=== PATIENT | female | born 1985 | race American Indian/Alaskan Native ===

== ENCOUNTER 2018-03-28 12:43 | Emergency (ER) | payer MEDICAID, OTHER ==
[2018-03-28 13:11] VITALS: BP 154/97
[2018-03-28 13:48] LABS: Bilirubin,Urine NEG (Negative); Blood,Urine NEG (Negative); Color,Urine Yellow (Yellow); Mucus,Urine FEW /HPF; Protein,Urine <15 mg/dL mg/dL (Negative); RBC,Urine < 1.0 /HPF (0.0-6.0); Urobilinogen,Urine < 2.0 mg/dL (<2.0)
[2018-03-28 13:53] LABS: HCG Qualitative,Urine Negative (Negative)
[2018-03-28] MEDS ORDERED: DECADRON IM ONE (15:06)
[2018-03-28] MEDS ORDERED: ATROVENT IH ONE (15:06)
[2018-03-28] MEDS ORDERED: PROVENTIL IH ONE (15:06)
--- NOTE | 2018-03-28 15:12 | Emergency Department Report ---
ED Shortness of Breath HPI - General Chief Complaint: Adult Asthma Stated Complaint: ASTHMA ATTACK/TI Time Seen by Provider: 03/28/18 14:59 Source: patient Mode of arrival: Ambulatory Limitations: No Limitations - History of Present Illness Initial Comments: This is a 32-year-old female nontoxic, well nourished in appearance, no acute signs of distress presents to the ED with c/o of right sided chest pain, cough, shortness of breathe and wheezing x2 days. Patient stated has been out of her inhaler medication. Patient stated she was just diagnosed with Bronchitis last month. Patient denies any radiation of pain. Patient stated chest pain is wo rsed when coughing and palpation. Patient describes pain as aching. Patient denies any hemoptysis, fever, chills, nausea, vomiting, headache, stiff neck, numbness, tingling, abdominal pain. Patient denies pleuritic chest pain. Patient denies any recent travels or long car rides. Patient denies any recent surgeries or any sick contacts. Patient stated allergies to Ibuprofen with PMH of asthma and HTN. MD Complaint: shortness of breath, cough, chest pain, "asthma attack" -: days(s) (2) Severity: mild Quality: aching Consistency: intermittent Improves With: rest, upright position Worsens With: lying flat, coughing Known History Of: asthma Context: recent URI Associated Symptoms: chest pain, cough Treatments Prior to Arrival: none - Related Data Previous Rx's Medication Instructions Recorded Last Taken Type metroNIDAZOLE [Metrogel] 60 gm TP QDAY #1 gel..gram. 06/13/15 Unknown Rx ALBUTEROL Inhaler (OR & NICU) 2 puff IH Q6H PRN #1 inhalation 02/11/18 Unknown Rx [ProAir HFA Inhaler] Amoxicillin/K Clav Tab [Augmentin 1 tab PO Q12HR #20 tab 02/11/18 Unknown Rx 875MG TAB] Cetirizine HCl [ZyrTEC] 10 mg PO QAM 14 Days #14 capsule 02/11/18 Unknown Rx Fluconazole [Diflucan TAB] 100 mg PO QDAY 2 Days #2 tablet 02/11/18 Unknown Rx Fluticasone [Flonase] 1 spray NS QDAY 14 Days #1 bottle 02/11/18 Unknown Rx guaiFENesin/CODEINE [Robitussin AC] 10 ml PO QHS PRN #70 oral.liqd 02/11/18 Unknown Rx predniSONE [Deltasone] 50 mg PO QDAY 3 Days #3 tab 02/11/18 Unknown Rx ALBUTEROL Inhaler(NF) [VENTOLIN 1 puff IH Q4-6H PRN #1 inha 03/28/18 Unknown Rx Inhaler(NF)] Furosemide [Lasix TAB] 40 mg PO QDAY #30 tablet 03/28/18 Unknown Rx Prednisone [predniSONE 10 mg 10 mg PO .TAPER #1 tab.ds.pk 03/28/18 Unknown Rx (6-Day Pack, 21 Tabs)] levoFLOXacin [Levaquin TAB] 750 mg PO QDAY #7 tablet 03/28/18 Unknown Rx Allergies Allergy/AdvReac Type Severity Reaction Status Date / Time ibuprofen [From Motrin] Allergy Hives Verified 02/11/18 07:27 ED Review of Systems ROS: Stated complaint: ASTHMA ATTACK/TI Other details as noted in HPI Constitutional: denies: chills, fever Eyes: denies: eye pain, eye discharge, vision change ENT: denies: ear pain, throat pain Respiratory: cough, shortness of breath, wheezing Cardiovascular: chest pain. denies: palpitations Endocrine: no symptoms reported Gastrointestinal: denies: abdominal pain, nausea, diarrhea Genitourinary: denies: urgency, dysuria, discharge Musculoskeletal: denies: back pain, joint swelling, arthralgia Skin: denies: rash, lesions Neurological: denies: headache, weakness, paresthesias Psychiatric: denies: anxiety, depression Hematological/Lymphatic: denies: easy bleeding, easy bruising ED Past Medical Hx - Past Medical History Previous Medical History?: Yes Hx Hypertension: Yes Hx Asthma: Yes Additional medical history: Anemia - Surgical History Additional Surgical History: right shoulder surgery. neck surgery - Social History Smoking Status: Current Every Day Smoker Substance Use Type: Prescribed - Medications Home Medications: Home Medications Medication Instructions Recorded Confirmed Last Taken Type metroNIDAZOLE [Metrogel] 60 gm TP QDAY #1 gel..gram. 06/13/15 Unknown Rx ALBUTEROL Inhaler (OR & NICU) 2 puff IH Q6H PRN #1 inhalation 02/11/18 Unknown Rx [ProAir HFA Inhaler] Amoxicillin/K Clav Tab [Augmentin 1 tab PO Q12HR #20 tab 02/11/18 Unknown Rx 875MG TAB] Cetirizine HCl [ZyrTEC] 10 mg PO QAM 14 Days #14 capsule 02/11/18 Unknown Rx Fluconazole [Diflucan TAB] 100 mg PO QDAY 2 Days #2 tablet 02/11/18 Unknown Rx Fluticasone [Flonase] 1 spray NS QDAY 14 Days #1 bottle 02/11/18 Unknown Rx guaiFENesin/CODEINE [Robitussin AC] 10 ml PO QHS PRN #70 oral.liqd 02/11/18 Unknown Rx predniSONE [Deltasone] 50 mg PO QDAY 3 Days #3 tab 02/11/18 Unknown Rx ALBUTEROL Inhaler(NF) [VENTOLIN 1 puff IH Q4-6H PRN #1 inha 03/28/18 Unknown Rx Inhaler(NF)] Furosemide [Lasix TAB] 40 mg PO QDAY #30 tablet 03/28/18 Unknown Rx Prednisone [predniSONE 10 mg 10 mg PO .TAPER #1 tab.ds.pk 03/28/18 Unknown Rx (6-Day Pack, 21 Tabs)] levoFLOXacin [Levaquin TAB] 750 mg PO QDAY #7 tablet 03/28/18 Unknown Rx ED Physical Exam - General Limitations: No Limitations General appearance: alert, in no apparent distress - Head Head exam: Present: atraumatic, normocephalic - Eye Eye exam: Present: normal appearance - ENT ENT exam: Present: normal exam, normal orophraynx - Neck Neck exam: Present: normal inspection, full ROM. Absent: tenderness, meningismus, lymphadenopathy - Respiratory Respiratory exam: Present: normal lung sounds bilaterally, wheezes (bilateral upper and lower lobes), chest wall tenderness (midsternum). Absent: respiratory distress, rales, rhonchi, stridor, accessory muscle use, decreased breath sounds, prolonged expiratory - Cardiovascular Cardiovascular Exam: Present: regular rate, normal rhythm, normal heart sounds. Absent: bradycardia, tachycardia, irregular rhythm, systolic murmur, diastolic murmur, rubs, gallop - Extremities Exam Extremities exam: Present: normal inspection, full ROM - Back Exam Back exam: Present: normal inspection, full ROM - Neurological Exam Neurological exam: Present: alert, oriented X3 - Psychiatric Psychiatric exam: Present: normal affect, normal mood - Skin Skin exam: Present: warm, dry, intact, normal color. Absent: rash ED Course Vital Signs 03/28/18 13:04 Temperature 98.8 F Pulse Rate 81 Respiratory 20 Rate Blood Pressure 154/97 O2 Sat by Pulse 95 Oximetry - Reevaluation(s) Reevaluation #1: 03/28/18 15:25 Patient is speaking in full sentences with no signs of distress noted. Reevaluation #2: 03/28/18 18:47 During discharge patient is requested for Lasix 40 mg by mouth to be refilled as she currently takes it daily. ED Medical Decision Making - Lab Data Result diagrams: 03/28/18 15:11 03/28/18 15:11 - Medical Decision Making This is a 7-year-old male that presents with asthma exacerbation and PNA. Patient is stable and was examined by me. ABIGAIL and HEART score 0 pints. Wells criteria for DVT/SVT/PE 0 points. D-dimmer was elevated. EKG normal sinus rhythm with no significant ST abnormalities. Non stemi and signed by MD. CTA and Chest x-ray has been obtained and dictated by the radiologist within normal limits. Patient is notified of the CTA/x-ray report with no questions noted by the patient. Patient did receive DuoNeb and steroids in the ED which patient the symptoms has resolved and subsided. Posttreatment and there is no wheezing upon auscultation. Patient is discharged with Levo, albuterol and prednisone. Patient was referred to Follow-up with a primary care doctor in 3-5 days or if symptoms worsen and continue return to emergency room as soon as possible. At time of discharge, the patient does not seem toxic or ill in appearance. No acute signs of distress noted. Patient agrees to discharge treatment plan of care. No further questions noted by the patient. This chart is dictated with using [employer] Dictation Program Critical care attestation.: If time is entered above; I have spent that time in minutes in the direct care of this critically ill patient, excluding procedure time. ED Disposition Clinical Impression: Costochondritis Asthma exacerbation Qualifiers: Asthma severity: mild Asthma persistence: intermittent Qualified Code(s): J45.21 - Mild intermittent asthma with (acute) exacerbation PNA (pneumonia) Qualifiers: Pneumonia type: due to unspecified organism Laterality: bilateral Lung location: unspecified part of lung Qualified Code(s): J18.9 - Pneumonia, unspecified organism Disposition: DC-01 TO HOME OR SELFCARE Is pt being admited?: No Does the pt Need Aspirin: No Condition: Stable Instructions: Asthma (ED), Bacterial Pneumonia (ED) Additional Instructions: Follow-up with a primary care doctor in 3-5 days or if symptoms worsen and continue return to emergency room as soon as possible. Prescriptions: ALBUTEROL Inhaler(NF) [VENTOLIN Inhaler(NF)] 1 puff IH Q4-6H PRN #1 inha PRN Reason: Wheezing Furosemide [Lasix TAB] 40 mg PO QDAY #30 tablet levoFLOXacin [Levaquin TAB] 750 mg PO QDAY #7 tablet Prednisone [predniSONE 10 mg (6-Day Pack, 21 Tabs)] 10 mg PO .TAPER #1 tab.ds.pk Referrals: PRIMARY CARE, [Primary Care Provider] - 3-5 Days KVNG QUINTANA MD [Staff Physician] - 3-5 Days [facility] [Outside] - 3-5 Days Forms: Work/School Release Form(ED)
[2018-03-28 15:18] LABS: Basophils % (Auto) 0.4 % (0.0-1.8); Eosinophils # (Auto) 0.1 K/mm3 (0.0-0.4); Eosinophils % (Auto) 1.2 % (0.0-4.3); Hemoglobin 9.9 gm/dl (10.1-14.3); Lymphocytes # (Auto) 2.5 K/mm3 (1.2-5.4); Lymphocytes % (Auto) 24.9 % (13.4-35.0); Mean Corpuscular HGB Conc 32 % (30-34); Mean Corpuscular Volume 75 fl (79-97); Platelet Count 417 K/mm3 (140-440); Red Blood Count 4.12 M/mm3 (3.65-5.03); Red Cell Distribution Width 15.8 % (13.2-15.2)
[2018-03-28 15:33] LABS: BUN/Creatinine Ratio 16; Blood Urea Nitrogen 13 mg/dL (7-17); Calcium 8.2 mg/dL (8.4-10.2)
--- NOTE | 2018-03-28 16:04 | XRay Report ---
FINAL REPORT EXAM: XR CHEST ROUTINE 2V HISTORY: sob/wheezing TECHNIQUE: PA and lateral views of the chest PRIORS: None. FINDINGS: Lines, tubes, and devices: N/A Lungs and pleura: Trachea is normal in position. Patchy early alveolar infiltrates are scattered bila terally. There is no evidence for pleural effusion, vascular congestion, or pneumothorax. Cardiomediastinal silhouette: Cardiac and mediastinal silhouettes are unremarkable. Other: Bony structures are intact. IMPRESSION: Patchy early bilateral alveolar infiltrates suggesting infection.
--- NOTE | 2018-03-28 18:10 | Cat Scan Report ---
FINAL REPORT EXAM: CT ANGIO CHEST HISTORY: SOB/chest pain with elevated D-dimer TECHNIQUE: Enhanced CT of the chest at 2.5 mm axial intervals following a pulmonary embolism protoco l. Coronal and sagittal imaging were also obtained. Coronal and sagittal MIP projections were obtaine d. Contrast: 100 ml of Omnipaque 350 given IV. PRIORS: CXR 03/28/2018 FINDINGS: There is no evidence for pulmonary embolism in the main pulmonary artery, right and left pulmonary ar teries or their major distributions. However, CT does not exclude distal pulmonary emboli. Patchy small scattered ground-glass infiltrates are present bilaterally, similar to the prior chest x -ray. Findings are most likely infectious or inflammatory in etiology. Otherwise, the lung parenchyma are expanded and clear with no evidence for parenchymal nodules, infil trates, congestion, or pleural effusion. There is no evidence for mediastinal, hilar, or axillary ad enopathy. Cardiovascular structures are within normal limits. Normal anatomic variant origin of the left verteb ral artery directly from the arch of the aorta is noted. No evidence for ventricular chamber enlargem ent is seen. Images through the lung bases include the upper abdomen which show no abnormalities of the visualized abdominal viscera. Bony structures demonstrate no focal abnormalities. IMPRESSION: No evidence for pulmonary embolism. Patchy ground-glass infiltrates bilaterally, likely infectious or inflammatory in etiology.
== END 2018-03-28 18:51 | disposition home or self-care (01) ==
LOC: ED 12:43
DX: M94.0 Chondrocostal junction syndrome [Tietze] (principal); J45.21 Mild intermittent asthma with (acute) exacerbation; J18.9 Pneumonia, unspecified organism; I10 Essential (primary) hypertension; F17.200 Nicotine dependence, unspecified, uncomplicated; Z86.2 Personal history of diseases of the blood and blood-forming organs and certain disorders involving the immune mechanism; Z79.899 Other long term (current) drug therapy; Z88.6 Allergy status to analgesic agent
CPT/HCPCS: 36415; 71046; 71275; 80048; 81001; 81025; 84484; 85025; 85379; 93005; 93010; 94640; 96372; 99285; J1100; Q9967

== ENCOUNTER 2018-04-14 06:23 | Emergency (ER) | payer MEDICAID ==
[2018-04-14 07:29] VITALS: BP 146/65
[2018-04-14] MEDS ORDERED: NACL 0.9% 1000 ML 1,000 ML IV ONE (07:32)
[2018-04-14] MEDS ORDERED: MORPHINE IV ONE (07:32)
[2018-04-14] MEDS ORDERED: ZOFRAN IV ONE (07:32)
--- NOTE | 2018-04-14 07:38 | Emergency Department Report ---
ED Abdominal Pain HPI - General Chief Complaint: Abdominal Pain Stated Complaint: BACK PAIN Time Seen by Provider: 04/14/18 07:13 Source: patient, EMS Mode of arrival: Wheelchair Limitations: No Limitations - History of Present Illness Initial Comments: Patient is 32 years old morbidly obese female with history of hypertension and asthma. Patient stated that she was recently discharged from [facility] for pneumonia. Patient presented to the emergency room via EMS complaining of left flank pain that started last night. Patient described her pain as sharp with no radiation. Patient stated that pain increases with movement and slightly improved with remaining still. Patient denied any fever, nausea or vomiting. No urinary symptoms. MD Complaint: flank pain -: Last night Location: L flank Radiation: none Migration to: no migration Severity: moderate Severity scale (0 -10): 7 Consistency: constant - Related Data Previous Rx's Medication Instructions Recorded Last Taken Type metroNIDAZOLE [Metrogel] 60 gm TP QDAY #1 gel..gram. 06/13/15 Unknown Rx ALBUTEROL Inhaler (OR & NICU) 2 puff IH Q6H PRN #1 inhalation 02/11/18 Unknown Rx [ProAir HFA Inhaler] Amoxicillin/K Clav Tab [Augmentin 1 tab PO Q12HR #20 tab 02/11/18 Unknown Rx 875MG TAB] Cetirizine HCl [ZyrTEC] 10 mg PO QAM 14 Days #14 capsule 02/11/18 Unknown Rx Fluconazole [Diflucan TAB] 100 mg PO QDAY 2 Days #2 tablet 02/11/18 Unknown Rx Fluticasone [Flonase] 1 spray NS QDAY 14 Days #1 bottle 02/11/18 Unknown Rx guaiFENesin/CODEINE [Robitussin AC] 10 ml PO QHS PRN #70 oral.liqd 02/11/18 Unknown Rx predniSONE [Deltasone] 50 mg PO QDAY 3 Days #3 tab 02/11/18 Unknown Rx ALBUTEROL Inhaler(NF) [VENTOLIN 1 puff IH Q4-6H PRN #1 inha 03/28/18 Unknown Rx Inhaler(NF)] Furosemide [Lasix TAB] 40 mg PO QDAY #30 tablet 03/28/18 Unknown Rx Prednisone [predniSONE 10 mg 10 mg PO .TAPER #1 tab.ds.pk 03/28/18 Unknown Rx (6-Day Pack, 21 Tabs)] levoFLOXacin [Levaquin TAB] 750 mg PO QDAY #7 tablet 03/28/18 Unknown Rx Allergies Allergy/AdvReac Type Severity Reaction Status Date / Time ibuprofen [From Motrin] Allergy Hives Verified 02/11/18 07:27 ED Review of Systems ROS: Stated complaint: BACK PAIN Other details as noted in HPI Comment: All other systems reviewed and negative Constitutional: denies: chills, fever Respiratory: denies: cough, orthopnea, shortness of breath, SOB with exertion, SOB at rest, wheezing Cardiovascular: denies: chest pain, palpitations Gastrointestinal: denies: abdominal pain, nausea, vomiting, diarrhea, constipation, hematemesis, melena Genitourinary: denies: urgency, dysuria Musculoskeletal: back pain Skin: denies: rash Neurological: denies: headache, weakness, numbness, paresthesias, confusion, abnormal gait ED Past Medical Hx - Past Medical History Previous Medical History?: Yes Hx Hypertension: Yes Hx Renal Disease: Yes Hx Asthma: Yes Additional medical history: Anemia, pneumonia - Surgical History Past Surgical History?: Yes Additional Surgical History: right shoulder surgery. neck surgery - Social History Smoking Status: Never Smoker Substance Use Type: None - Medications Home Medications: Home Medications Medication Instructions Recorded Confirmed Last Taken Type metroNIDAZOLE [Metrogel] 60 gm TP QDAY #1 gel..gram. 06/13/15 Unknown Rx ALBUTEROL Inhaler (OR & NICU) 2 puff IH Q6H PRN #1 inhalation 02/11/18 Unknown Rx [ProAir HFA Inhaler] Amoxicillin/K Clav Tab [Augmentin 1 tab PO Q12HR #20 tab 02/11/18 Unknown Rx 875MG TAB] Cetirizine HCl [ZyrTEC] 10 mg PO QAM 14 Days #14 capsule 02/11/18 Unknown Rx Fluconazole [Diflucan TAB] 100 mg PO QDAY 2 Days #2 tablet 02/11/18 Unknown Rx Fluticasone [Flonase] 1 spray NS QDAY 14 Days #1 bottle 02/11/18 Unknown Rx guaiFENesin/CODEINE [Robitussin AC] 10 ml PO QHS PRN #70 oral.liqd 02/11/18 Unknown Rx predniSONE [Deltasone] 50 mg PO QDAY 3 Days #3 tab 02/11/18 Unknown Rx ALBUTEROL Inhaler(NF) [VENTOLIN 1 puff IH Q4-6H PRN #1 inha 03/28/18 Unknown Rx Inhaler(NF)] Furosemide [Lasix TAB] 40 mg PO QDAY #30 tablet 03/28/18 Unknown Rx Prednisone [predniSONE 10 mg 10 mg PO .TAPER #1 tab.ds.pk 03/28/18 Unknown Rx (6-Day Pack, 21 Tabs)] levoFLOXacin [Levaquin TAB] 750 mg PO QDAY #7 tablet 03/28/18 Unknown Rx ED Physical Exam - General Limitations: No Limitations General appearance: alert, in distress (due to pain) - Head Head exam: Present: atraumatic, normocephalic, normal inspection - Eye Eye exam: Present: normal appearance - ENT ENT exam: Present: normal exam, normal orophraynx, mucous membranes moist - Neck Neck exam: Present: normal inspection, full ROM. Absent: tenderness, meningismus, lymphadenopathy, thyromegaly - Respiratory Respiratory exam: Present: normal lung sounds bilaterally. Absent: respiratory distress, wheezes, rales, rhonchi, stridor, chest wall tenderness, accessory muscle use, decreased breath sounds, prolonged expiratory - Cardiovascular Cardiovascular Exam: Present: regular rate, normal rhythm, normal heart sounds - GI/Abdominal GI/Abdominal exam: Present: soft, normal bowel sounds. Absent: distended, tenderness, guarding, rebound, rigid, organomegaly, mass, bruit, pulsatile mass, hernia - Extremities Exam Extremities exam: Present: normal inspection, full ROM, normal capillary refill. Absent: pedal edema, calf tenderness - Back Exam Back exam: Present: normal inspection, full ROM, CVA tenderness (L). Absent: tenderness, CVA tenderness (R), muscle spasm, paraspinal tenderness, vertebral tenderness, rash noted - Neurological Exam Neurological exam: Present: alert, oriented X3, CN II-XII intact, normal gait, reflexes normal - Psychiatric Psychiatric exam: Present: normal affect - Skin Skin exam: Present: warm, intact, normal color ED Course Vital Signs 04/14/18 04/14/18 04/14/18 07:25 08:00 09:55 Temperature 98.1 F Pulse Rate 72 Respiratory 21 18 20 Rate Blood Pressure 146/65 O2 Sat by Pulse 97 Oximetry ED Medical Decision Making - Lab Data Result diagrams: 04/14/18 07:41 04/14/18 07:41 - Radiology Data Radiology results: report reviewed Referring Physician: CECELIA OROPEZA Patient Name: FARHEEN HERNANDEZ Date of : 1985 Sex: Female Report Date: 2018-04-14 Report Status: Finalized Findings [facility] [address] [place] [address] XRay Report Signed Patient: FARHEEN HERNANDEZ MR#: [id number] : 1985 Acct:[id number] Age/Sex: 32 / F ADM Date: 04/14/18 Loc: ED Attending Dr: Ordering Physician: CECELIA OROPEZA Date of Service: 04/14/18 Procedure(s): XR chest 1V ap Accession Number(s): [id number] cc: CECELIA OROPEZA Fluoro Time In Minutes: AP CHEST: HISTORY: Cough AP view of the chest demonstrates a normal mediastinal and cardiac contour with clear lungs and normal bony and soft tissue structures. IMPRESSION: Unremarkable AP chest. Subtle patchy lung opacities have resolved since 03/28/18. Transcribed By: TTR Dictated By: WILLI CHAMBERS JR, MD Electronically Authenticated By: WILLI CHAMBERS JR, MD Signed Date/Time: 04/14/18901 DD/ 0 TD/TT: 04/14/18901 Referring Physician: CECELIA OROPEZA Patient Name: FARHEEN HERNANDEZ Date of : 1985 Sex: Female Report Date: 2018-04-14 Report Status: Finalized Findings [address] [address] Cat Scan Report Signed Patient: FARHEEN HERNANDEZ MR#: [id number] : 1985 Acct:[id number] Age/Sex: 32 / F ADM Date: 04/14/18 Loc: ED Attending Dr: Ordering Physician: CECELIA OROPEZA Date of Service: 04/14/18 Procedure(s): CT abdomen pelvis w con Accession Number(s): [id number] cc: CECELIA OROPEZA CT ABDOMEN PELVIS WITH CONTRAST: HISTORY: Abdominal pain, left flank pain. COMPARISON: No relevant comparison. TECHNIQUE: Helical CT in 1.25mm intervals following IV contrast. Sagittal and coronal reconstructions. FINDINGS: Lung bases: Adequately aerated. Normal heart size. Liver: Normal. Biliary system: Normal. Pancreas: Normal. Spleen: Normal. Kidneys/ureters/bladder: Normal. Adrenal glands: Normal. Aorta: Normal. Intestines: Normal. Appendix: Normal. Pelvic viscera: Normal. Ascites: None. Adenopathy: None. Musculoskeletal: Healing subacute lateral rib fractures are identified on the left side at levels 5 and 6 in the right side at levels 6, 7 and 8. A more acute non-displaced posterior left 11th rib fracture is also identified. IMPRESSION: Unremarkable CT scan of the abdomen and pelvis with contrast. Multiple rib fractures which appear to be of different ages as described. Transcribed By: TTR Dictated By: WILLI CHAMBERS JR, MD Electronically Authenticated By: WILLI CHAMBERS JR, MD Signed Date/Time: 04/14/181046 DD/ 1043 - Medical Decision Making Patient is 32 years old morbidly obese female with history of hypertension and asthma. Patient stated that she was recently discharged from [facility] for pneumonia. Patient presented to the emergency room via EMS complaining of left flank pain that started last night. Patient described her pain as sharp with no radiation. Patient stated that pain increases with movement and slightly improved with remaining still. Patient denied any fever, nausea or vomiting. No urinary symptoms. Patient last reviewed and is unremarkable. CT abdomen and pelvis showed a multiple left ribs fracture. Patient stated that she does not remember any recent injury. I advised patient to follow up with her primary care physician for further workup and to return to the ER if her symptoms have not improved. Critical care attestation.: If time is entered above; I have spent that time in minutes in the direct care of this critically ill patient, excluding procedure time. ED Disposition Clinical Impression: Left flank pain, Multiple rib fractures Disposition: TO HOME OR SELFCARE Is pt being admited?: No Condition: Stable Instructions: Abdominal Pain (ED), Rib Fracture (ED) Referrals: [facility] [Provider Group] - 3-5 Days
[2018-04-14 07:57] LABS: Basophils # (Auto) 0.1 K/mm3 (0.0-0.1); Basophils % (Auto) 1.4 % (0.0-1.8); Eosinophils # (Auto) 0.2 K/mm3 (0.0-0.4); Eosinophils % (Auto) 2.8 % (0.0-4.3); Hematocrit 34.1 % (30.3-42.9); Hemoglobin 10.8 gm/dl (10.1-14.3); Lymphocytes # (Auto) 2.6 K/mm3 (1.2-5.4); Lymphocytes % (Auto) 31.1 % (13.4-35.0); Mean Corpuscular HGB Conc 32 % (30-34); Mean Corpuscular Volume 75 fl (79-97); Monocytes # (Auto) 0.9 K/mm3 (0.0-0.8); Monocytes % (Auto) 10.6 % (0.0-7.3); Platelet Count 306 K/mm3 (140-440); Red Blood Count 4.58 M/mm3 (3.65-5.03); Red Cell Distribution Width 16.1 % (13.2-15.2)
[2018-04-14 08:16] LABS: Albumin 3.7 g/dL (3.9-5); BUN/Creatinine Ratio 12; Blood Urea Nitrogen 12 mg/dL (7-17); Calcium 8.9 mg/dL (8.4-10.2); Hemolysis Index 126
[2018-04-14 08:33] LABS: Bilirubin,Direct < 0.2 mg/dL (0-0.2)
[2018-04-14 08:34] LABS: Alanine Aminotransferase 12 units/L (7-56)
--- NOTE | 2018-04-14 09:05 | XRay Report ---
AP CHEST: HISTORY: Cough AP view of the chest demonstrates a normal mediastinal and cardiac contour with clear lungs and normal bony and soft tissue structures. IMPRESSION: Unremarkable AP chest. Subtle patchy lung opacities have resolved since 03/28/18.
[2018-04-14 09:24] LABS: Bacteria,Urine 2+ /HPF (Negative); Bilirubin,Urine NEG (Negative); Blood,Urine NEG (Negative); Color,Urine Yellow (Yellow); Mucus,Urine FEW /HPF; Protein,Urine <15 mg/dL mg/dL (Negative); RBC,Urine < 1.0 /HPF (0.0-6.0); Urobilinogen,Urine < 2.0 mg/dL (<2.0)
[2018-04-14] MEDS ORDERED: SUBLIMAZE IV ONE ×2 (09:41→11:00)
[2018-04-14] MEDS ORDERED: SUBLIMAZE ONE (09:46)
--- NOTE | 2018-04-14 10:50 | Cat Scan Report ---
CT ABDOMEN PELVIS WITH CONTRAST: HISTORY: Abdominal pain, left flank pain. COMPARISON: No relevant comparison. TECHNIQUE: Helical CT in 1.25mm intervals following IV contrast. Sagittal and coronal reconstructions. FINDINGS: Lung bases: Adequately aerated. Normal heart size. Liver: Normal. Biliary system: Normal. Pancreas: Normal. Spleen: Normal. Kidneys/ureters/bladder: Normal. Adrenal glands: Normal. Aorta: Normal. Intestines: Normal. Appendix: Normal. Pelvic viscera: Normal. Ascites: None. Adenopathy: None. Musculoskeletal: Healing subacute lateral rib fractures are identified on the left side at levels 5 and 6 in the right side at levels 6, 7 and 8. A more acute non-displaced posterior left 11th rib fracture is also identified. IMPRESSION: Unremarkable CT scan of the abdomen and pelvis with contrast. Multiple rib fractures which appear to be of different ages as described.
== END 2018-04-14 12:30 | disposition home or self-care (01) ==
LOC: ED 06:23
DX: S22.42XA Multiple fractures of ribs, left side, initial encounter for closed fracture (principal); I10 Essential (primary) hypertension; J45.909 Unspecified asthma, uncomplicated; Z88.6 Allergy status to analgesic agent; X58.XXXA Exposure to other specified factors, initial encounter; Y93.89 Activity, other specified; Y92.89 Other specified places as the place of occurrence of the external cause; Y99.8 Other external cause status
CPT/HCPCS: 36415; 71045; 74177; 80048; 80076; 81001; 83690; 84703; 85025; 96374; 96375; 99285; J2270; J2405; J3010; J7030; Q9967

== ENCOUNTER 2018-06-23 20:45 | Emergency (ER) | payer MEDICAID, OTHER ==
--- NOTE | 2018-06-23 21:15 | Emergency Department Report ---
Chief Complaint: Upper Respiratory Infection Stated Complaint: BAD COUGH Time Seen by Provider: 06/23/18 21:12 - HPI History of Present Illness: Pt presents with a cough that began three weeks ago (+) mucus production (+) rhinorrhea, congestion no fever no sick contacts hx of asthma, htn pt uses albuterol inhaler MSE screening note: Focused history and physical exam performed. Due to findings the following was ordered: CXR ED Disposition for MSE Condition: Stable
--- NOTE | 2018-06-23 23:08 | XRay Report ---
PROCEDURE: XR CHEST ROUTINE 2V HISTORY: cough FINDINGS: Frontal and lateral views the chest were acquired. The heart is normal in size. There is no consolidative pulmonary infiltrate. The pulmonary vasculature is within normal limits. IMPRESSION: No active disease in the chest This document is electronically signed by Faustino Guerrero MD., June 23 2018 11:06:20 PM ET
[2018-06-24] MEDS ORDERED: DUONEB *Not for PRN Use IH ONE (00:35)
[2018-06-24] MEDS ORDERED: DELTASONE PO STA (00:36)
[2018-06-24 00:53] VITALS: BP 103/85
--- NOTE | 2018-06-24 01:43 | Emergency Department Report ---
- General Chief Complaint: Upper Respiratory Infection Stated Complaint: BAD COUGH Time Seen by Provider: 06/23/18 21:12 Source: patient Mode of arrival: Ambulatory Limitations: No Limitations - History of Present Illness MD Complaint: cough, sore throat, rhinorrhea, nasal congestion -: week(s) (2) Severity: mild Consistency: constant Improves With: nothing Worsens With: nothing Associated Symptoms: rhinorrhea, nasal congestion, sore throat, cough, nausea. denies: fever, chills, myalgias, diaphoresis, chest pain, shortness of breath, abdominal pain, vomiting, diarrhea, dysuria, confusion, weight loss, epistaxis, hoarseness, ear pain Treatments Prior to Arrival: none - Related Data Previous Rx's Medication Instructions Recorded Last Taken Type metroNIDAZOLE [Metrogel] 60 gm TP QDAY #1 gel..gram. 06/13/15 Unknown Rx ALBUTEROL Inhaler (OR & NICU) 2 puff IH Q6H PRN #1 inhalation 02/11/18 Unknown Rx [ProAir HFA Inhaler] Amoxicillin/K Clav Tab [Augmentin 1 tab PO Q12HR #20 tab 02/11/18 Unknown Rx 875MG TAB] Cetirizine HCl [ZyrTEC] 10 mg PO QAM 14 Days #14 capsule 02/11/18 Unknown Rx Fluconazole [Diflucan TAB] 100 mg PO QDAY 2 Days #2 tablet 02/11/18 Unknown Rx Fluticasone [Flonase] 1 spray NS QDAY 14 Days #1 bottle 02/11/18 Unknown Rx guaiFENesin/CODEINE [Robitussin AC] 10 ml PO QHS PRN #70 oral.liqd 02/11/18 Unknown Rx predniSONE [Deltasone] 50 mg PO QDAY 3 Days #3 tab 02/11/18 Unknown Rx ALBUTEROL Inhaler(NF) [VENTOLIN 1 puff IH Q4-6H PRN #1 inha 03/28/18 Unknown Rx Inhaler(NF)] Furosemide [Lasix TAB] 40 mg PO QDAY #30 tablet 03/28/18 Unknown Rx Prednisone [predniSONE 10 mg 10 mg PO .TAPER #1 tab.ds.pk 03/28/18 Unknown Rx (6-Day Pack, 21 Tabs)] levoFLOXacin [Levaquin TAB] 750 mg PO QDAY #7 tablet 03/28/18 Unknown Rx HYDROcodone/APAP 5-325 [[place] 1 each PO Q6HR PRN #14 tablet 04/14/18 Unknown Rx 5/325] Ondansetron [Zofran Odt] 4 mg PO Q8HR PRN #14 tab.rapdis 04/14/18 Unknown Rx ALBUTEROL Inhaler (OR & NICU) 1 puff IH Q4-6H PRN #1 inha 06/24/18 Unknown Rx [ProAir HFA Inhaler] Azithromycin [Zithromax] 500 mg PO QDAY #5 tablet 06/24/18 Unknown Rx Benzonatate [Tessalon Perles] 100 mg PO Q8HR #30 capsule 06/24/18 Unknown Rx guaiFENesin/CODEINE [Robitussin AC] 5 ml PO Q6H PRN #120 ml 06/24/18 Unknown Rx Allergies Allergy/AdvReac Type Severity Reaction Status Date / Time ibuprofen [From Motrin] Allergy Hives Verified 02/11/18 07:27 ED Review of Systems ROS: Stated complaint: BAD COUGH Other details as noted in HPI Constitutional: denies: chills, fever Eyes: denies: eye pain, eye discharge, vision change ENT: congestion. denies: ear pain, throat pain Respiratory: cough. denies: shortness of breath, wheezing Cardiovascular: denies: chest pain, palpitations Endocrine: no symptoms reported Gastrointestinal: denies: abdominal pain, nausea, diarrhea Genitourinary: denies: urgency, dysuria, discharge Musculoskeletal: denies: back pain, joint swelling, arthralgia Skin: denies: rash, lesions Neurological: denies: headache, weakness, paresthesias Psychiatric: denies: anxiety, depression Hematological/Lymphatic: denies: easy bleeding, easy bruising ED Past Medical Hx - Past Medical History Previous Medical History?: Yes Hx Hypertension: Yes Hx Renal Disease: Yes Hx Asthma: Yes Additional medical history: Anemia, pneumonia - Surgical History Past Surgical History?: Yes Additional Surgical History: right shoulder surgery. neck surgery - Social History Smoking Status: Never Smoker Substance Use Type: None - Medications Home Medications: Home Medications Medication Instructions Recorded Confirmed Last Taken Type metroNIDAZOLE [Metrogel] 60 gm TP QDAY #1 gel..gram. 06/13/15 Unknown Rx ALBUTEROL Inhaler (OR & NICU) 2 puff IH Q6H PRN #1 inhalation 02/11/18 Unknown Rx [ProAir HFA Inhaler] Amoxicillin/K Clav Tab [Augmentin 1 tab PO Q12HR #20 tab 02/11/18 Unknown Rx 875MG TAB] Cetirizine HCl [ZyrTEC] 10 mg PO QAM 14 Days #14 capsule 02/11/18 Unknown Rx Fluconazole [Diflucan TAB] 100 mg PO QDAY 2 Days #2 tablet 02/11/18 Unknown Rx Fluticasone [Flonase] 1 spray NS QDAY 14 Days #1 bottle 02/11/18 Unknown Rx guaiFENesin/CODEINE [Robitussin AC] 10 ml PO QHS PRN #70 oral.liqd 02/11/18 Unknown Rx predniSONE [Deltasone] 50 mg PO QDAY 3 Days #3 tab 02/11/18 Unknown Rx ALBUTEROL Inhaler(NF) [VENTOLIN 1 puff IH Q4-6H PRN #1 inha 03/28/18 Unknown Rx Inhaler(NF)] Furosemide [Lasix TAB] 40 mg PO QDAY #30 tablet 03/28/18 Unknown Rx Prednisone [predniSONE 10 mg 10 mg PO .TAPER #1 tab.ds.pk 03/28/18 Unknown Rx (6-Day Pack, 21 Tabs)] levoFLOXacin [Levaquin TAB] 750 mg PO QDAY #7 tablet 03/28/18 Unknown Rx HYDROcodone/APAP 5-325 [[place] 1 each PO Q6HR PRN #14 tablet 04/14/18 Unknown Rx 5/325] Ondansetron [Zofran Odt] 4 mg PO Q8HR PRN #14 tab.rapdis 04/14/18 Unknown Rx ALBUTEROL Inhaler (OR & NICU) 1 puff IH Q4-6H PRN #1 inha 06/24/18 Unknown Rx [ProAir HFA Inhaler] Azithromycin [Zithromax] 500 mg PO QDAY #5 tablet 06/24/18 Unknown Rx Benzonatate [Tessalon Perles] 100 mg PO Q8HR #30 capsule 06/24/18 Unknown Rx guaiFENesin/CODEINE [Robitussin AC] 5 ml PO Q6H PRN #120 ml 06/24/18 Unknown Rx ED Physical Exam - General Limitations: No Limitations General appearance: alert, in no apparent distress - Head Head exam: Present: atraumatic, normocephalic - Eye Eye exam: Present: normal appearance, PERRL, EOMI Pupils: Present: normal accommodation - ENT ENT exam: Present: normal exam, normal orophraynx, mucous membranes moist, TM's normal bilaterally, other (nasal congestion with discharge) - Neck Neck exam: Present: normal inspection, full ROM. Absent: meningismus, lymphadenopathy, thyromegaly - Respiratory Respiratory exam: Present: normal lung sounds bilaterally, wheezes, rhonchi, chest wall tenderness. Absent: respiratory distress - Cardiovascular Cardiovascular Exam: Present: regular rate, normal rhythm. Absent: systolic murmur, diastolic murmur, rubs, gallop - GI/Abdominal GI/Abdominal exam: Present: soft, normal bowel sounds. Absent: tenderness, guarding, hyperactive bowel sounds, hypoactive bowel sounds - Extremities Exam Extremities exam: Present: normal inspection, full ROM, normal capillary refill - Back Exam Back exam: Present: normal inspection, full ROM. Absent: CVA tenderness (R), CVA tenderness (L) - Neurological Exam Neurological exam: Present: alert, oriented X3, CN II-XII intact, normal gait - Psychiatric Psychiatric exam: Present: normal affect, normal mood. Absent: anxious, flat affect, manic - Skin Skin exam: Present: warm, dry, intact, normal color. Absent: rash ED Course Vital Signs 06/23/18 06/24/18 21:12 00:51 Temperature 98.5 F 98.6 F Pulse Rate 97 H 89 Respiratory 18 20 Rate Blood Pressure 128/79 Blood Pressure 103/85 [Left] O2 Sat by Pulse 100 96 Oximetry Critical care attestation.: If time is entered above; I have spent that time in minutes in the direct care of this critically ill patient, excluding procedure time. ED Disposition Clinical Impression: Cough, Acute bronchitis Disposition: TO HOME OR SELFCARE Is pt being admited?: No Does the pt Need Aspirin: No Condition: Stable Instructions: Acute Bronchitis (ED) Prescriptions: ALBUTEROL Inhaler (OR & NICU) [ProAir HFA Inhaler] 1 puff IH Q4-6H PRN #1 inha PRN Reason: Cough guaiFENesin/CODEINE [Robitussin AC] 5 ml PO Q6H PRN #120 ml PRN Reason: Cough Benzonatate [Tessalon Perles] 100 mg PO Q8HR #30 capsule Azithromycin [Zithromax] 500 mg PO QDAY #5 tablet Referrals: NOEL GAMBOA MD [Primary Care Provider] - 3-5 Days
== END 2018-06-24 01:46 | disposition home or self-care (01) ==
LOC: ED 20:45
DX: J20.9 Acute bronchitis, unspecified (principal); I10 Essential (primary) hypertension; J45.909 Unspecified asthma, uncomplicated; Z88.5 Allergy status to narcotic agent; Z86.2 Personal history of diseases of the blood and blood-forming organs and certain disorders involving the immune mechanism; Z87.01 Personal history of pneumonia (recurrent); Z87.442 Personal history of urinary calculi
CPT/HCPCS: 71046; 94640; 99283; J7512

== ENCOUNTER 2018-07-23 18:46 | Emergency (ER) | payer OTHER ==
[2018-07-23] MEDS ORDERED: SUBLIMAZE IV ONE (19:21)
[2018-07-23] MEDS ORDERED: DIPRIVAN 10 MG/ML IV ONE (19:21)
[2018-07-23] MEDS ORDERED: KETALAR IV ONE (19:21)
[2018-07-23] MEDS ORDERED: ZOFRAN IV ONE (19:21)
--- NOTE | 2018-07-23 19:22 | Emergency Department Report ---
ED General Adult HPI - General Chief complaint: Extremity Injury, Upper Stated complaint: R SHOULDER PAIN Time Seen by Provider: 07/23/18 18:56 Source: patient, EMS (ems notes not available at time of chart dictation), RN notes reviewed, old records reviewed Mode of arrival: Stretcher Limitations: Physical Limitation - History of Present Illness Initial comments: This is a 33-year-old female, right-hand dominant, not known to this provider previously, reports that she is not . Presents to the emergency room after reaching forward, and spontaneously dislocating her right shoulder. She reports that she had shoulder dislocation in 2010. She denies other pain. She denies other trauma. She indicates sharp throbbing shoulder pain. The pain does not radiate anywhere. It increases with palpation. It decreases with rest. She makes no complaint of additional injuries or other complaints at this time. She reports that she does feel quite anxious. -: Sudden Location: right, upper extremity Radiation: non-radiation Quality: aching Consistency: constant Improves with: medication, rest Worsens with: movement - Related Data Previous Rx's Medication Instructions Recorded Last Taken Type metroNIDAZOLE [Metrogel] 60 gm TP QDAY #1 gel..gram. 06/13/15 Unknown Rx ALBUTEROL Inhaler (OR & NICU) 2 puff IH Q6H PRN #1 inhalation 02/11/18 Unknown Rx [ProAir HFA Inhaler] Amoxicillin/K Clav Tab [Augmentin 1 tab PO Q12HR #20 tab 02/11/18 Unknown Rx 875MG TAB] Cetirizine HCl [ZyrTEC] 10 mg PO QAM 14 Days #14 capsule 02/11/18 Unknown Rx Fluconazole [Diflucan TAB] 100 mg PO QDAY 2 Days #2 tablet 02/11/18 Unknown Rx Fluticasone [Flonase] 1 spray NS QDAY 14 Days #1 bottle 02/11/18 Unknown Rx guaiFENesin/CODEINE [Robitussin AC] 10 ml PO QHS PRN #70 oral.liqd 02/11/18 Unknown Rx predniSONE [Deltasone] 50 mg PO QDAY 3 Days #3 tab 02/11/18 Unknown Rx ALBUTEROL Inhaler(NF) [VENTOLIN 1 puff IH Q4-6H PRN #1 inha 03/28/18 Unknown Rx Inhaler(NF)] Furosemide [Lasix TAB] 40 mg PO QDAY #30 tablet 03/28/18 Unknown Rx Prednisone [predniSONE 10 mg 10 mg PO .TAPER #1 tab.ds.pk 03/28/18 Unknown Rx (6-Day Pack, 21 Tabs)] levoFLOXacin [Levaquin TAB] 750 mg PO QDAY #7 tablet 03/28/18 Unknown Rx HYDROcodone/APAP 5-325 [[place] 1 each PO Q6HR PRN #14 tablet 04/14/18 Unknown Rx 5/325] Ondansetron [Zofran Odt] 4 mg PO Q8HR PRN #14 tab.rapdis 04/14/18 Unknown Rx ALBUTEROL Inhaler (OR & NICU) 1 puff IH Q4-6H PRN #1 inha 06/24/18 Unknown Rx [ProAir HFA Inhaler] Azithromycin [Zithromax] 500 mg PO QDAY #5 tablet 06/24/18 Unknown Rx Benzonatate [Tessalon Perles] 100 mg PO Q8HR #30 capsule 06/24/18 Unknown Rx guaiFENesin/CODEINE [Robitussin AC] 5 ml PO Q6H PRN #120 ml 06/24/18 Unknown Rx Acetaminophen [Arthritis Pain 650 mg PO Q6HR PRN #30 tablet.er 07/23/18 Unknown Rx Relief] Allergies Allergy/AdvReac Type Severity Reaction Status Date / Time ibuprofen [From Motrin] Allergy Hives Verified 02/11/18 07:27 ED Review of Systems ROS: Stated complaint: R SHOULDER PAIN Other details as noted in HPI Constitutional: denies: fever Eyes: denies: eye discharge ENT: denies: epistaxis Respiratory: denies: cough Cardiovascular: denies: chest pain Gastrointestinal: denies: nausea, vomiting Musculoskeletal: joint swelling, arthralgia, myalgia Skin: denies: lesions Neurological: weakness. denies: numbness Psychiatric: anxiety ED Past Medical Hx - Past Medical History Hx Hypertension: Yes Hx Renal Disease: Yes Hx Asthma: Yes Additional medical history: Anemia, pneumonia - Surgical History Additional Surgical History: right shoulder surgery. neck surgery - Social History Smoking Status: Never Smoker Substance Use Type: None - Medications Home Medications: Home Medications Medication Instructions Recorded Confirmed Last Taken Type metroNIDAZOLE [Metrogel] 60 gm TP QDAY #1 gel..gram. 06/13/15 Unknown Rx ALBUTEROL Inhaler (OR & NICU) 2 puff IH Q6H PRN #1 inhalation 02/11/18 Unknown Rx [ProAir HFA Inhaler] Amoxicillin/K Clav Tab [Augmentin 1 tab PO Q12HR #20 tab 02/11/18 Unknown Rx 875MG TAB] Cetirizine HCl [ZyrTEC] 10 mg PO QAM 14 Days #14 capsule 02/11/18 Unknown Rx Fluconazole [Diflucan TAB] 100 mg PO QDAY 2 Days #2 tablet 02/11/18 Unknown Rx Fluticasone [Flonase] 1 spray NS QDAY 14 Days #1 bottle 02/11/18 Unknown Rx guaiFENesin/CODEINE [Robitussin AC] 10 ml PO QHS PRN #70 oral.liqd 02/11/18 Unknown Rx predniSONE [Deltasone] 50 mg PO QDAY 3 Days #3 tab 02/11/18 Unknown Rx ALBUTEROL Inhaler(NF) [VENTOLIN 1 puff IH Q4-6H PRN #1 inha 03/28/18 Unknown Rx Inhaler(NF)] Furosemide [Lasix TAB] 40 mg PO QDAY #30 tablet 03/28/18 Unknown Rx Prednisone [predniSONE 10 mg 10 mg PO .TAPER #1 tab.ds.pk 03/28/18 Unknown Rx (6-Day Pack, 21 Tabs)] levoFLOXacin [Levaquin TAB] 750 mg PO QDAY #7 tablet 03/28/18 Unknown Rx HYDROcodone/APAP 5-325 [[place] 1 each PO Q6HR PRN #14 tablet 04/14/18 Unknown Rx 5/325] Ondansetron [Zofran Odt] 4 mg PO Q8HR PRN #14 tab.rapdis 04/14/18 Unknown Rx ALBUTEROL Inhaler (OR & NICU) 1 puff IH Q4-6H PRN #1 inha 06/24/18 Unknown Rx [ProAir HFA Inhaler] Azithromycin [Zithromax] 500 mg PO QDAY #5 tablet 06/24/18 Unknown Rx Benzonatate [Tessalon Perles] 100 mg PO Q8HR #30 capsule 06/24/18 Unknown Rx guaiFENesin/CODEINE [Robitussin AC] 5 ml PO Q6H PRN #120 ml 06/24/18 Unknown Rx Acetaminophen [Arthritis Pain 650 mg PO Q6HR PRN #30 tablet.er 07/23/18 Unknown Rx Relief] ED Physical Exam - General Limitations: Physical Limitation General appearance: alert, anxious, in distress, obese - Head Head exam: Present: atraumatic, normocephalic - Eye Eye exam: Present: normal appearance, EOMI. Absent: nystagmus - ENT ENT exam: Present: normal exam, normal orophraynx, mucous membranes moist, normal external ear exam - Neck Neck exam: Present: normal inspection, full ROM. Absent: tenderness, meningismus - Respiratory Respiratory exam: Present: decreased breath sounds. Absent: respiratory distress, wheezes, rales, rhonchi, stridor - Cardiovascular Cardiovascular Exam: Present: regular rate, normal rhythm, normal heart sounds. Absent: bradycardia, tachycardia, irregular rhythm, systolic murmur, diastolic murmur, rubs, gallop - GI/Abdominal GI/Abdominal exam: Present: soft. Absent: distended, tenderness, guarding, rebound, rigid, pulsatile mass - Extremities Exam Extremities exam: Present: tenderness, other (2+ pulses noted in the bilateral upper, lower extremities. Compartments soft. No long bony tenderness. The pelvis is stable.). Absent: normal inspection (left upper extremity within normal limits. Right upper extremity shows a palpable step-off over the right shoulder. Distal sensation is intact in the deltoid, median, radial, ulnar distribution. 5 out of 5 massage therapy instructor strength bilateral upper extremities.), calf tenderness - Back Exam Back exam: Present: normal inspection, full ROM. Absent: tenderness, CVA tenderness (R), paraspinal tenderness, vertebral tenderness - Neurological Exam Neurological exam: Present: alert, oriented X3, other (Extraocular movements intact. Tongue midline. No facial droop. Facial sensation intact to light touch in the V1, V2, V3 distribution bilaterally. 5 and 5 strength in 4 extremities.. Sensation is intact to light touch in 4 extremities.). Absent: motor sensory deficit - Psychiatric Psychiatric exam: Present: anxious - Skin Skin exam: Present: warm, dry, intact, normal color. Absent: rash ED Course Vital Signs 07/23/18 07/23/18 07/23/18 18:55 19:16 19:30 Temperature 99.7 F H Pulse Rate 86 86 Pulse Rate [ Intra-Procedure ] Pulse Rate [ Post-Procedure] Respiratory 20 15 Rate Respiratory Rate [Intra- Procedure] Respiratory Rate [Post- Procedure] Blood Pressure 147/86 158/116 Blood Pressure [Intra- Procedure] Blood Pressure [Post-Procedure ] O2 Sat by Pulse 100 95 99 Oximetry O2 Sat by Pulse Oximetry [ Intra-Procedure ] O2 Sat by Pulse Oximetry [Post -Procedure] 07/23/18 07/23/18 07/23/18 19:40 19:46 20:00 Temperature Pulse Rate 93 H 85 Pulse Rate [ 103 H Intra-Procedure ] Pulse Rate [ 109 H Post-Procedure] Respiratory 17 11 L Rate Respiratory 20 Rate [Intra- Procedure] Respiratory 25 H Rate [Post- Procedure] Blood Pressure 179/120 129/100 Blood Pressure 131/111 [Intra- Procedure] Blood Pressure 129/100 [Post-Procedure ] O2 Sat by Pulse 100 Oximetry O2 Sat by Pulse 96 Oximetry [ Intra-Procedure ] O2 Sat by Pulse 98 Oximetry [Post -Procedure] 07/23/18 07/23/18 20:15 20:30 Temperature Pulse Rate 76 77 Pulse Rate [ Intra-Procedure ] Pulse Rate [ Post-Procedure] Respiratory 15 14 Rate Respiratory Rate [Intra- Procedure] Respiratory Rate [Post- Procedure] Blood Pressure 122/55 Blood Pressure [Intra- Procedure] Blood Pressure [Post-Procedure ] O2 Sat by Pulse 98 97 Oximetry O2 Sat by Pulse Oximetry [ Intra-Procedure ] O2 Sat by Pulse Oximetry [Post -Procedure] - Reevaluation(s) Reevaluation #1: 07/23/18 21:50 Patient resting comfortably, and in no acute distress. Postreduction film demonstrates appropriate reduction. No deficits neurovascular integrity post- reduction. Patient will be discharged. - Moderate Sedation Indications: fracture/dislocation redu Presedation Evaluation: Patient given score of ASA 2 for morbid obesity. Has no other injuries, no other complaints, reports that she has had anesthesia in the past without difficulty. Reports last ingestion was at around 3:00 PM of food. Patient provided written and verbal consent for moderate sedation with closed reduction. Risks, benefits alternatives were discussed with patient, who verbalized understanding. Conversation witnessed by nurse Konstantin Milton ASA Class: II Mallampati Airway Score: 2 Preparation: trade recruiter applied, pulse oximeter, capnometry used, supplemen ekaterina O2 applied, suction/airway equipment at bedside, IV secured Ketamine: IV Ketamine Dose: 50 IV Propofol Dose (mgs): 50 Complications: none Patient Tolerated Procedure: well - Orthopedic Joint Reduction Joint #1 Consent Obtained: verbal consent, written consent, emergent situation Time Out Performed: Yes Side: right Joint Reduction Location: shoulder Analgesia: moderate sedation Technique Used: direct manipulation Post-Reduction Neuro Exam: intact Post-Reduction Vascular Exam: intact Post Reduction X-Ray Obtained: Yes Post Reduction X-Ray Results: reduced Splint Applied: Yes (sling, immobilizer applied) Patient Tolerated Procedure: well, no complications - Orthopedic Splinting/Casting Injury #1 Side: right Upper Extremity Injury Location: shoulder Upper Extremity Immobilizer: sling/shoulder immobilize ED Medical Decision Making - Lab Data Vital Signs 07/23/18 07/23/18 07/23/18 18:55 19:16 19:30 Temperature 99.7 F H Pulse Rate 86 86 Pulse Rate [ Intra-Procedure ] Pulse Rate [ Post-Procedure] Respiratory 20 15 Rate Respiratory Rate [Intra- Procedure] Respiratory Rate [Post- Procedure] Blood Pressure 147/86 158/116 Blood Pressure [Intra- Procedure] Blood Pressure [Post-Procedure ] O2 Sat by Pulse 100 95 99 Oximetry O2 Sat by Pulse Oximetry [ Intra-Procedure ] O2 Sat by Pulse Oximetry [Post -Procedure] 07/23/18 07/23/18 07/23/18 19:40 19:46 20:00 Temperature Pulse Rate 93 H 85 Pulse Rate [ 103 H Intra-Procedure ] Pulse Rate [ 109 H Post-Procedure] Respiratory 17 11 L Rate Respiratory 20 Rate [Intra- Procedure] Respiratory 25 H Rate [Post- Procedure] Blood Pressure 179/120 129/100 Blood Pressure 131/111 [Intra- Procedure] Blood Pressure 129/100 [Post-Procedure ] O2 Sat by Pulse 100 Oximetry O2 Sat by Pulse 96 Oximetry [ Intra-Procedure ] O2 Sat by Pulse 98 Oximetry [Post -Procedure] 07/23/18 07/23/18 20:15 20:30 Temperature Pulse Rate 76 77 Pulse Rate [ Intra-Procedure ] Pulse Rate [ Post-Procedure] Respiratory 15 14 Rate Respiratory Rate [Intra- Procedure] Respiratory Rate [Post- Procedure] Blood Pressure 122/55 Blood Pressure [Intra- Procedure] Blood Pressure [Post-Procedure ] O2 Sat by Pulse 98 97 Oximetry O2 Sat by Pulse Oximetry [ Intra-Procedure ] O2 Sat by Pulse Oximetry [Post -Procedure] - Radiology Data Radiology results: pending, report reviewed, image reviewed X-ray #1 shows inferior right-sided shoulder dislocation. Repeat x-ray shows appropriate reduction. - Medical Decision Making Differential diagnosis, including but not limited to: Recurrent shoulder disl ocation Assessment and plan: 33-year-old female with shoulder dislocation, no other injuries, shoulder has been successfully reduced times one, patient placed in a shoulder immobilizer, and she will be instructed to follow up with outpatient orthopedics. Does not have any neurovascular deficits at this time. Critical care attestation.: If time is entered above; I have spent that time in minutes in the direct care of this critically ill patient, excluding procedure time. ED Disposition Clinical Impression: Shoulder dislocation Disposition: -01 TO HOME OR SELFCARE Is pt being admited?: No Does the pt Need Aspirin: No Condition: Good Instructions: Shoulder Dislocation (ED), Moderate Sedation (ED) Additional Instructions: Take the pain medication as needed/directed. Keep the shoulder sling in place as directed. Follow-up with an orthopedic doctor within the next 5-7 days. Patient may have undiagnosed ligamentous, soft tissue injury to the right shoulder. Therefore, it is very important to follow-up with the outpatient orthopedist as directed. Return to the emergency room right away with new pain, or some pain, migration of pain, projectile vomiting, change in mental status, confusion, inability to tolerate liquid feeds, new, worsening or different symptoms. Do not drive or operate motor vehicles for the next 24 hours. Do not consume alcohol or sedating medication for the next 24 hours. Prescriptions: Acetaminophen [Arthritis Pain Relief] 650 mg PO Q6HR PRN #30 tablet.er PRN Reason: Pain , Severe (7-10) Referrals: ABA MONGE MD [Staff Physician] - 3-5 Days [facility] [Provider Group] - 3-5 Days
[2018-07-23] MEDS ORDERED: KETAMINE HCL IV ONE ×2 (19:30)
[2018-07-23] MEDS ORDERED: SODIUM CHLORIDE FLUSH SYRINGE 10 ML IV NR (20:00)
--- NOTE | 2018-07-23 21:19 | XRay Report ---
PROCEDURE: RIGHT SHOULDER, 2 VIEWS TECHNIQUE: RIGHT shoulder radiographs including AP views in internal and external rotation. CPT 7303 0 HISTORY: Trauma COMPARISONS: None . FINDINGS: There is anterior dislocation of the right glenohumeral joint. No fractures identified. Soft tissues are within normal limits. IMPRESSION: Anterior right shoulder dislocation . This document is electronically signed by Breezy Becker MD., Jul 23 2018 09:17:24 PM ET
--- NOTE | 2018-07-23 21:40 | XRay Report ---
PROCEDURE: XR SHOULDER 1V RT TECHNIQUE: Single AP view of the shoulder HISTORY: dislocation reduction COMPARISONS: Correlated with today's earlier exam FINDINGS: Single anterior view demonstrates reduction of previously described anterior dislocation. No fracture s are identified. IMPRESSION: Reduction of previously described shoulder dislocation. This document is electronically signed by Toni Danielle MD., Jul 23 2018 09:38:12 PM ET
[2018-07-23 22:44] VITALS: BP 127/68
== END 2018-07-23 23:00 | disposition home or self-care (01) ==
LOC: ED 18:46
DX: S43.004A Unspecified dislocation of right shoulder joint, initial encounter (principal); I10 Essential (primary) hypertension; J45.909 Unspecified asthma, uncomplicated; Z86.2 Personal history of diseases of the blood and blood-forming organs and certain disorders involving the immune mechanism; Z79.899 Other long term (current) drug therapy; Z88.6 Allergy status to analgesic agent; X58.XXXA Exposure to other specified factors, initial encounter; Y93.89 Activity, other specified; Y92.89 Other specified places as the place of occurrence of the external cause; Y99.8 Other external cause status
CPT/HCPCS: 23650; 73020; 73030; 96374; 96375; 99284; J2405; J2704; J3010

== ENCOUNTER 2018-08-14 12:27 | Emergency (ER) | payer SELFPAY ==
[2018-08-14 12:38] VITALS: BP 149/87
--- NOTE | 2018-08-14 13:07 | Emergency Department Report ---
ED Female HPI - General Chief complaint: Urogenital-Female Stated complaint: YEAST INFECTION Time Seen by Provider: 08/14/18 12:54 Source: patient Mode of arrival: Ambulatory Limitations: No Limitations - History of Present Illness Initial comments: This is a 33 year-old female who presents to the emergency room with vaginal discharge and itching for the past 3 days. Last period 07/20/2018, A0. Past medical history of asthma, hypertension, renal disease, and anemia. Patient states she had unprotected intercourse 4-5 days ago in concern for possible STD. She reports some pelvic cramps and dysuria. She denies low back pain, urinary frequency, urgency, and fever. MD Complaint: vaginal discharge, possible STD Onset/Timin -: days(s) Location: suprapubic Radiation: non-radiating Severity: mild Severity scale (0 -10): 3 Quality: cramping, burning Consistency: intermittent Improves with: none Worsens with: urination Are you Now?: No Last Menstrual Period: 07/20/18 EDC: 04/26/19 Associated Symptoms: vaginal discharge, abdominal pain, dysuria. denies: vaginal bleeding, nausea/vomiting, fever/chills, headaches, loss of appetite, hematuria, rash, seizure, shortness of breath, syncope, weakness - Related Data Sexually active: Yes : 3 Para: 3 A: 0 Previous Rx's Medication Instructions Recorded Last Taken Type metroNIDAZOLE [Metrogel] 60 gm TP QDAY #1 gel..gram. 06/13/15 Unknown Rx ALBUTEROL Inhaler (OR & NICU) 2 puff IH Q6H PRN #1 inhalation 02/11/18 Unknown Rx [ProAir HFA Inhaler] Amoxicillin/K Clav Tab [Augmentin 1 tab PO Q12HR #20 tab 02/11/18 Unknown Rx 875MG TAB] Cetirizine HCl [ZyrTEC] 10 mg PO QAM 14 Days #14 capsule 02/11/18 Unknown Rx Fluconazole [Diflucan TAB] 100 mg PO QDAY 2 Days #2 tablet 02/11/18 Unknown Rx Fluticasone [Flonase] 1 spray NS QDAY 14 Days #1 bottle 02/11/18 Unknown Rx guaiFENesin/CODEINE [Robitussin AC] 10 ml PO QHS PRN #70 oral.liqd 02/11/18 Unknown Rx predniSONE [Deltasone] 50 mg PO QDAY 3 Days #3 tab 02/11/18 Unknown Rx ALBUTEROL Inhaler(NF) [VENTOLIN 1 puff IH Q4-6H PRN #1 inha 03/28/18 Unknown Rx Inhaler(NF)] Furosemide [Lasix TAB] 40 mg PO QDAY #30 tablet 03/28/18 Unknown Rx Prednisone [predniSONE 10 mg 10 mg PO .TAPER #1 tab.ds.pk 03/28/18 Unknown Rx (6-Day Pack, 21 Tabs)] levoFLOXacin [Levaquin TAB] 750 mg PO QDAY #7 tablet 03/28/18 Unknown Rx HYDROcodone/APAP 5-325 [[place] 1 each PO Q6HR PRN #14 tablet 04/14/18 Unknown Rx 5/325] Ondansetron [Zofran Odt] 4 mg PO Q8HR PRN #14 tab.rapdis 04/14/18 Unknown Rx ALBUTEROL Inhaler (OR & NICU) 1 puff IH Q4-6H PRN #1 inha 06/24/18 Unknown Rx [ProAir HFA Inhaler] Azithromycin [Zithromax] 500 mg PO QDAY #5 tablet 06/24/18 Unknown Rx Benzonatate [Tessalon Perles] 100 mg PO Q8HR #30 capsule 06/24/18 Unknown Rx guaiFENesin/CODEINE [Robitussin AC] 5 ml PO Q6H PRN #120 ml 06/24/18 Unknown Rx Acetaminophen [Arthritis Pain 650 mg PO Q6HR PRN #30 tablet.er 07/23/18 Unknown Rx Relief] metroNIDAZOLE [Flagyl TAB] 500 mg PO Q12HR #14 tab 08/14/18 Unknown Rx Allergies Allergy/AdvReac Type Severity Reaction Status Date / Time ibuprofen [From Motrin] Allergy Hives Verified 08/14/18 12:34 ED Review of Systems ROS: Stated complaint: YEAST INFECTION Other details as noted in HPI Constitutional: denies: chills, fever Respiratory: denies: cough, shortness of breath, wheezing Cardiovascular: denies: chest pain, palpitations Gastrointestinal: abdominal pain. denies: nausea, diarrhea Genitourinary: dysuria, discharge. denies: urgency Musculoskeletal: denies: back pain, joint swelling, arthralgia Skin: denies: rash, lesions Neurological: denies: headache, weakness, paresthesias Psychiatric: denies: anxiety, depression ED Past Medical Hx - Past Medical History Hx Hypertension: Yes Hx Renal Disease: Yes Hx Asthma: Yes Additional medical history: Anemia, pneumonia - Surgical History Additional Surgical History: right shoulder surgery. neck surgery - Social History Smoking Status: Never Smoker Substance Use Type: None - Medications Home Medications: Home Medications Medication Instructions Recorded Confirmed Last Taken Type metroNIDAZOLE [Metrogel] 60 gm TP QDAY #1 gel..gram. 06/13/15 Unknown Rx ALBUTEROL Inhaler (OR & NICU) 2 puff IH Q6H PRN #1 inhalation 02/11/18 Unknown Rx [ProAir HFA Inhaler] Amoxicillin/K Clav Tab [Augmentin 1 tab PO Q12HR #20 tab 02/11/18 Unknown Rx 875MG TAB] Cetirizine HCl [ZyrTEC] 10 mg PO QAM 14 Days #14 capsule 02/11/18 Unknown Rx Fluconazole [Diflucan TAB] 100 mg PO QDAY 2 Days #2 tablet 02/11/18 Unknown Rx Fluticasone [Flonase] 1 spray NS QDAY 14 Days #1 bottle 02/11/18 Unknown Rx guaiFENesin/CODEINE [Robitussin AC] 10 ml PO QHS PRN #70 oral.liqd 02/11/18 Unknown Rx predniSONE [Deltasone] 50 mg PO QDAY 3 Days #3 tab 02/11/18 Unknown Rx ALBUTEROL Inhaler(NF) [VENTOLIN 1 puff IH Q4-6H PRN #1 inha 03/28/18 Unknown Rx Inhaler(NF)] Furosemide [Lasix TAB] 40 mg PO QDAY #30 tablet 03/28/18 Unknown Rx Prednisone [predniSONE 10 mg 10 mg PO .TAPER #1 tab.ds.pk 03/28/18 Unknown Rx (6-Day Pack, 21 Tabs)] levoFLOXacin [Levaquin TAB] 750 mg PO QDAY #7 tablet 03/28/18 Unknown Rx HYDROcodone/APAP 5-325 [[place] 1 each PO Q6HR PRN #14 tablet 04/14/18 Unknown Rx 5/325] Ondansetron [Zofran Odt] 4 mg PO Q8HR PRN #14 tab.rapdis 04/14/18 Unknown Rx ALBUTEROL Inhaler (OR & NICU) 1 puff IH Q4-6H PRN #1 inha 06/24/18 Unknown Rx [ProAir HFA Inhaler] Azithromycin [Zithromax] 500 mg PO QDAY #5 tablet 06/24/18 Unknown Rx Benzonatate [Tessalon Perles] 100 mg PO Q8HR #30 capsule 06/24/18 Unknown Rx guaiFENesin/CODEINE [Robitussin AC] 5 ml PO Q6H PRN #120 ml 06/24/18 Unknown Rx Acetaminophen [Arthritis Pain 650 mg PO Q6HR PRN #30 tablet.er 07/23/18 Unknown Rx Relief] metroNIDAZOLE [Flagyl TAB] 500 mg PO Q12HR #14 tab 08/14/18 Unknown Rx ED Physical Exam - General Limitations: No Limitations General appearance: alert, in no apparent distress, obese (morbidly obese) - Respiratory Respiratory exam: Present: normal lung sounds bilaterally. Absent: respiratory distress - Cardiovascular Cardiovascular Exam: Present: regular rate, normal rhythm. Absent: systolic murmur, diastolic murmur, rubs, gallop - GI/Abdominal GI/Abdominal exam: Present: soft, normal bowel sounds - External exam: Present: normal external exam. Absent: erythema, swelling, lesions, lacerations, ecchymosis, bleeding Speculum exam: Present: vaginal discharge (malodorous yellowish green curdy discharge). Absent: cervical discharge, vaginal bleeding, foreign body, tissue, laceration Bi-manual exam: Present: normal bi-manual exam - Back Exam Back exam: Absent: CVA tenderness (R), CVA tenderness (L) - Neurological Exam Neurological exam: Present: alert, oriented X3 - Psychiatric Psychiatric exam: Present: normal affect, normal mood - Skin Skin exam: Present: warm, dry, intact, normal color. Absent: rash ED Course Vital Signs 08/14/18 12:34 Temperature 98.1 F Pulse Rate 91 H Respiratory 18 Rate Blood Pressure 149/87 O2 Sat by Pulse 100 Oximetry ED Medical Decision Making - Lab Data Lab Results 08/14/18 Range/Units 13:30 Urine Color Yellow (Yellow) Urine Turbidity Slightly-cloudy (Clear) Urine pH 5.0 (5.0-7.0) Ur Specific [place] 1.027 (1.003-1.030) Urine Protein <15 mg/dl (Negative) mg/dL Urine Glucose (UA) Neg (Negative) mg/dL Urine Ketones Neg (Negative) mg/dL Urine Blood Neg (Negative) Urine Nitrite Neg (Negative) Urine Bilirubin Neg (Negative) Urine Urobilinogen < 2.0 (<2.0) mg/dL Ur Leukocyte Esterase Neg (Negative) Urine WBC (Auto) < 1.0 (0.0-6.0) /HPF Urine RBC (Auto) 1.0 (0.0-6.0) /HPF U Epithel Cells (Auto) 2.0 (0-13.0) /HPF Urine Mucus Few /HPF Urine HCG, Qual Negative (Negative) - Medical Decision Making This is a 33-year-old -German female who presents with vaginal discharge and dysuria for 3 days. Patient was examined by me. Vitals are stable and in no acute distress. I obtained urinalysis, urine test, wet prep and gonorrhea and chlamydia via Pelvic exam. Wet prep positive for clue cells and many polymorphhonuclear cells. Empirically treated with Rocephin 250 mg IM and azithromycin 1 g by mouth. Start metronidazole 500 mg by mouth twice a day 7 days for bacterial vaginitis. Instructed to follow up in 3-5 days for pending gonorrhea and chlamydia results. Discharged home in stable condition. Discussed prevention options. F/U with PCP or Health Department. Critical care attestation.: If time is entered above; I have spent that time in minutes in the direct care of this critically ill patient, excluding procedure time. ED Disposition Clinical Impression: Bacterial vaginosis, STD exposure, Vaginal discharge, Dysuria Disposition: DC-01 TO HOME OR SELFCARE Is pt being admited?: No Does the pt Need Aspirin: No Condition: Stable Instructions: Bacterial Vaginosis (ED), Sexually Transmitted Diseases (ED), Safe Sex (ED) Additional Instructions: Avoid drinking alcohol while taking antibiotics and for 24 hours after completion. Continue safe sexual intercourse. Follow up with Primary Care Provider or health department. Prescriptions: metroNIDAZOLE [Flagyl TAB] 500 mg PO Q12HR #14 tab Referrals: NOEL GAMBOA MD [Primary Care Provider] - 3-5 Days [facility] [Outside] - 3-5 Days [facility] [Outside] - 3-5 Days Forms: STI Treatment and Prevention Time of Disposition: 15:12
[2018-08-14 13:41] LABS: Bilirubin,Urine NEG (Negative); Blood,Urine NEG (Negative); Color,Urine Yellow (Yellow); Mucus,Urine FEW /HPF; Protein,Urine <15 mg/dL mg/dL (Negative); Urobilinogen,Urine < 2.0 mg/dL (<2.0); WBC,Urine < 1.0 /HPF (0.0-6.0)
[2018-08-14 13:47] LABS: HCG Qualitative,Urine Negative (Negative)
[2018-08-14] MEDS ORDERED: ZITHROMAX PO ONE (15:34)
[2018-08-14] MEDS ORDERED: XYLOCAINE 1% MPF 5 mL INFILTRATI ONE (15:34)
[2018-08-14] MEDS ORDERED: ROCEPHIN IM ONE (15:34)
== END 2018-08-14 15:57 | disposition home or self-care (01) ==
LOC: ED 12:27
DX: N76.0 Acute vaginitis (principal); B96.89 Other specified bacterial agents as the cause of diseases classified elsewhere; I10 Essential (primary) hypertension; J45.909 Unspecified asthma, uncomplicated; D64.9 Anemia, unspecified; Z20.2 Contact with and (suspected) exposure to infections with a predominantly sexual mode of transmission; Z87.448 Personal history of other diseases of urinary system; Z98.890 Other specified postprocedural states; Z88.6 Allergy status to analgesic agent
CPT/HCPCS: 81001; 81025; 87210; 87591; 96372; 99284; J0696

== ENCOUNTER 2018-11-04 12:35 | Emergency (ER) | payer SELFPAY ==
[2018-11-04 12:50] VITALS: BP 115/79
[2018-11-04] MEDS ORDERED: TYLENOL/CODEINE PO STA (15:39)
--- NOTE | 2018-11-04 15:46 | Emergency Department Report ---
ED General Adult HPI - General Chief complaint: Extremity Injury, Lower Stated complaint: LFT FOOT PAIN/BAD COUGH Time Seen by Provider: 11/04/18 15:38 Source: patient Mode of arrival: Ambulatory Limitations: No Limitations - History of Present Illness Initial comments: [id number] female to emergency Department complaining of a one-month history of waxing and waning left foot pain to the plantar surface laterally located which flares up when appears to be spontaneously. Pain gets worse with palpation and certain ranges of motion, but reports no significant neck known trauma. There's been no no redness. No rashes or known trauma. Radiation: non-radiation Quality: aching, dull Consistency: constant Improves with: none Worsens with: none Associated Symptoms: denies: chest pain, diaphoresis, fever/chills, loss of appetite, nausea/vomiting, rash, seizure, syncope, weakness - Related Data Previous Rx's Medication Instructions Recorded Last Taken Type metroNIDAZOLE [Metrogel] 60 gm TP QDAY #1 gel..gram. 06/13/15 Unknown Rx ALBUTEROL Inhaler (OR & NICU) 2 puff IH Q6H PRN #1 inhalation 02/11/18 Unknown Rx [ProAir HFA Inhaler] Amoxicillin/K Clav Tab [Augmentin 1 tab PO Q12HR #20 tab 02/11/18 Unknown Rx 875MG TAB] Cetirizine HCl [ZyrTEC] 10 mg PO QAM 14 Days #14 capsule 02/11/18 Unknown Rx Fluconazole [Diflucan TAB] 100 mg PO QDAY 2 Days #2 tablet 02/11/18 Unknown Rx Fluticasone [Flonase] 1 spray NS QDAY 14 Days #1 bottle 02/11/18 Unknown Rx guaiFENesin/CODEINE [Robitussin AC] 10 ml PO QHS PRN #70 oral.liqd 02/11/18 Unknown Rx predniSONE [Deltasone] 50 mg PO QDAY 3 Days #3 tab 02/11/18 Unknown Rx ALBUTEROL Inhaler(NF) [VENTOLIN 1 puff IH Q4-6H PRN #1 inha 03/28/18 Unknown Rx Inhaler(NF)] Furosemide [Lasix TAB] 40 mg PO QDAY #30 tablet 03/28/18 Unknown Rx Prednisone [predniSONE 10 mg 10 mg PO .TAPER #1 tab.ds.pk 03/28/18 Unknown Rx (6-Day Pack, 21 Tabs)] levoFLOXacin [Levaquin TAB] 750 mg PO QDAY #7 tablet 03/28/18 Unknown Rx HYDROcodone/APAP 5-325 [[place] 1 each PO Q6HR PRN #14 tablet 04/14/18 Unknown Rx 5/325] Ondansetron [Zofran Odt] 4 mg PO Q8HR PRN #14 tab.rapdis 04/14/18 Unknown Rx ALBUTEROL Inhaler (OR & NICU) 1 puff IH Q4-6H PRN #1 inha 06/24/18 Unknown Rx [ProAir HFA Inhaler] Azithromycin [Zithromax] 500 mg PO QDAY #5 tablet 06/24/18 Unknown Rx Benzonatate [Tessalon Perles] 100 mg PO Q8HR #30 capsule 06/24/18 Unknown Rx guaiFENesin/CODEINE [Robitussin AC] 5 ml PO Q6H PRN #120 ml 06/24/18 Unknown Rx Acetaminophen [Arthritis Pain 650 mg PO Q6HR PRN #30 tablet.er 07/23/18 Unknown Rx Relief] metroNIDAZOLE [Flagyl TAB] 500 mg PO Q12HR #14 tab 08/14/18 Unknown Rx ALBUTEROL Inhaler (OR & NICU) 1 puff IH Q4-6H PRN #1 inha 11/04/18 Unknown Rx [ProAir HFA Inhaler] Azithromycin [Zithromax] 500 mg PO QDAY #5 tablet 11/04/18 Unknown Rx guaiFENesin/CODEINE [Robitussin AC] 5 ml PO Q6H PRN #120 ml 11/04/18 Unknown Rx Allergies Allergy/AdvReac Type Severity Reaction Status Date / Time ibuprofen [From Motrin] Allergy Hives Verified 11/04/18 12:40 ED Review of Systems ROS: Stated complaint: LFT FOOT PAIN/BAD COUGH Other details as noted in HPI Comment: All other systems reviewed and negative ED Past Medical Hx - Past Medical History Previous Medical History?: Yes Hx Hypertension: Yes Hx Renal Disease: Yes Hx Asthma: Yes Additional medical history: Anemia, pneumonia - Surgical History Past Surgical History?: Yes Additional Surgical History: right shoulder surgery. neck surgery - Social History Smoking Status: Never Smoker Substance Use Type: None - Medications Home Medications: Home Medications Medication Instructions Recorded Confirmed Last Taken Type metroNIDAZOLE [Metrogel] 60 gm TP QDAY #1 gel..gram. 06/13/15 Unknown Rx ALBUTEROL Inhaler (OR & NICU) 2 puff IH Q6H PRN #1 inhalation 02/11/18 Unknown Rx [ProAir HFA Inhaler] Amoxicillin/K Clav Tab [Augmentin 1 tab PO Q12HR #20 tab 02/11/18 Unknown Rx 875MG TAB] Cetirizine HCl [ZyrTEC] 10 mg PO QAM 14 Days #14 capsule 02/11/18 Unknown Rx Fluconazole [Diflucan TAB] 100 mg PO QDAY 2 Days #2 tablet 02/11/18 Unknown Rx Fluticasone [Flonase] 1 spray NS QDAY 14 Days #1 bottle 02/11/18 Unknown Rx guaiFENesin/CODEINE [Robitussin AC] 10 ml PO QHS PRN #70 oral.liqd 02/11/18 Unknown Rx predniSONE [Deltasone] 50 mg PO QDAY 3 Days #3 tab 02/11/18 Unknown Rx ALBUTEROL Inhaler(NF) [VENTOLIN 1 puff IH Q4-6H PRN #1 inha 03/28/18 Unknown Rx Inhaler(NF)] Furosemide [Lasix TAB] 40 mg PO QDAY #30 tablet 03/28/18 Unknown Rx Prednisone [predniSONE 10 mg 10 mg PO .TAPER #1 tab.ds.pk 03/28/18 Unknown Rx (6-Day Pack, 21 Tabs)] levoFLOXacin [Levaquin TAB] 750 mg PO QDAY #7 tablet 03/28/18 Unknown Rx HYDROcodone/APAP 5-325 [[place] 1 each PO Q6HR PRN #14 tablet 04/14/18 Unknown Rx 5/325] Ondansetron [Zofran Odt] 4 mg PO Q8HR PRN #14 tab.rapdis 04/14/18 Unknown Rx ALBUTEROL Inhaler (OR & NICU) 1 puff IH Q4-6H PRN #1 inha 06/24/18 Unknown Rx [ProAir HFA Inhaler] Azithromycin [Zithromax] 500 mg PO QDAY #5 tablet 06/24/18 Unknown Rx Benzonatate [Tessalon Perles] 100 mg PO Q8HR #30 capsule 06/24/18 Unknown Rx guaiFENesin/CODEINE [Robitussin AC] 5 ml PO Q6H PRN #120 ml 06/24/18 Unknown Rx Acetaminophen [Arthritis Pain 650 mg PO Q6HR PRN #30 tablet.er 07/23/18 Unknown Rx Relief] metroNIDAZOLE [Flagyl TAB] 500 mg PO Q12HR #14 tab 08/14/18 Unknown Rx ALBUTEROL Inhaler (OR & NICU) 1 puff IH Q4-6H PRN #1 inha 11/04/18 Unknown Rx [ProAir HFA Inhaler] Azithromycin [Zithromax] 500 mg PO QDAY #5 tablet 11/04/18 Unknown Rx guaiFENesin/CODEINE [Robitussin AC] 5 ml PO Q6H PRN #120 ml 11/04/18 Unknown Rx ED Physical Exam - General Limitations: No Limitations General appearance: alert, in no apparent distress - Head Head exam: Present: atraumatic, normocephalic - Eye Eye exam: Present: normal appearance, PERRL, EOMI Pupils: Present: normal accommodation - ENT ENT exam: Present: normal exam, mucous membranes moist - Neck Neck exam: Present: normal inspection - Respiratory Respiratory exam: Present: normal lung sounds bilaterally. Absent: respiratory distress, rales, rhonchi, decreased breath sounds - Cardiovascular Cardiovascular Exam: Present: regular rate, normal rhythm. Absent: systolic murmur, diastolic murmur, rubs, gallop - GI/Abdominal GI/Abdominal exam: Present: soft, normal bowel sounds - Extremities Exam Extremities exam: Present: normal inspection, full ROM - Expanded Lower Extremity Exam Right Foot/Toe exam: Present: full ROM, tenderness. Absent: abrasion, ecchymosis, deformity, dislocation, erythema, amputation, puncture wound, foreign body, calcaneal tenderness Neuro vascular tendon exam: Present: no vascular compromise. Absent: abnormal cap refill 1 - tenderness to left foot lateral aspect. - Back Exam Back exam: Present: normal inspection - Neurological Exam Neurological exam: Present: alert, oriented X3 - Psychiatric Psychiatric exam: Present: normal affect, normal mood - Skin Skin exam: Present: warm, dry, intact, normal color. Absent: rash ED Course Vital Signs 11/04/18 11/04/18 12:47 15:52 Temperature 98.9 F Pulse Rate 104 H Respiratory 20 18 Rate Blood Pressure 115/79 O2 Sat by Pulse 97 Oximetry ED Medical Decision Making - Radiology Data Radiology results: report reviewed (bilateral bilateral consolidation suggesting pneumonia. Foot x-ray was negative) - Medical Decision Making 33-year-old obese [place] female with chronic cough. The chest x-ray does reveal what appears to be bilateral pneumonia, patchy infiltrate. She is afebrile move 4 with a course of entire body aches anti-inflammatory [place] reevaluated and and and 3-5 days to evaluate the progression versus improving. - Differential Diagnosis pneumonia, bronchitis, hyperreactive airway disease, scarring Critical care attestation.: If time is entered above; I have spent that time in minutes in the direct care of this critically ill patient, excluding procedure time. ED Disposition Clinical Impression: Pneumonia, Foot pain Disposition: DC-01 TO HOME OR SELFCARE Is pt being admited?: No Does the pt Need Aspirin: No Condition: Stable Instructions: Community-acquired Pneumonia (ED), Bacterial Pneumonia (ED) Prescriptions: ALBUTEROL Inhaler (OR & NICU) [ProAir HFA Inhaler] 1 puff IH Q4-6H PRN #1 inha PRN Reason: Cough guaiFENesin/CODEINE [Robitussin AC] 5 ml PO Q6H PRN #120 ml PRN Reason: Cough Azithromycin [Zithromax] 500 mg PO QDAY #5 tablet Referrals: NOEL GAMBOA MD [Primary Care Provider] - 3-5 Days
--- NOTE | 2018-11-04 17:38 | XRay Report ---
. CHEST 2 VIEWS INDICATION / CLINICAL INFORMATION: cough. COMPARISON: 06/23/2018 FINDINGS: SUPPORT DEVICES: None. HEART / MEDIASTINUM: No significant abnormality. LUNGS / PLEURA: There are now moderately extensive, patchy bilateral areas of lung consolidation whic h may be pneumonia with other inflammatory process is not excluded. No adenopathy or effusions. No pn eumothorax. ADDITIONAL FINDINGS: No significant additional findings. IMPRESSION: 1. Moderate bilateral lung consolidation. Signer Name: Anup Jones MD Signed: 11/04/2018 5:34 PM Workstation Name: [id number]
--- NOTE | 2018-11-04 17:40 | XRay Report ---
Left foot, 3 views INDICATION: Plantar foot pain FINDINGS: The joint space is maintained. There is no fracture or dislocation. No spurring or arthriti c change. No bone lesion or periostitis. No significant abnormality. There is no plantar spurring fro m the calcaneus. IMPRESSION: Negative study Signer Name: Anup Jones MD Signed: 11/04/2018 5:35 PM Workstation Name: [id number]
== END 2018-11-04 18:20 | disposition home or self-care (01) ==
LOC: ED 12:35
DX: J18.9 Pneumonia, unspecified organism (principal); M79.672 Pain in left foot; I10 Essential (primary) hypertension; J45.909 Unspecified asthma, uncomplicated; Z86.2 Personal history of diseases of the blood and blood-forming organs and certain disorders involving the immune mechanism; Z88.6 Allergy status to analgesic agent; Z98.890 Other specified postprocedural states; Z79.899 Other long term (current) drug therapy
CPT/HCPCS: 71046

== ENCOUNTER 2018-11-14 19:41 | Emergency (ER) | payer SELFPAY ==
[2018-11-14 20:02] VITALS: BP 168/102
--- NOTE | 2018-11-14 20:12 | Event Note ---
ED Screening Note Date of service: 11/14/18 Time: 20:11 ED Screening Note: 33 y o female presents to ED cc of vaginal bleeding x 2 days staes lmp 10/06/18 satradha took upt was positive This initial assessment/diagnostic orders/clinical plan/treatment(s) is/are subject to change based on patients health status, clinical progression and re- assessment by fellow clinical providers in the ED. Further treatment and workup at subsequent clinical providers discretion. Patient/guardian urged not to elope from the ED as their condition may be serious if not clinically assessed and managed. Initial orders include: upt/ua
[2018-11-14 20:56] LABS: HCG Qualitative,Urine Negative (Negative)
[2018-11-14 20:58] LABS: Bilirubin,Urine NEG (Negative); Blood,Urine LG (Negative); Color,Urine Yellow (Yellow); Mucus,Urine FEW /HPF; Protein,Urine <15 mg/dL mg/dL (Negative); Urobilinogen,Urine < 2.0 mg/dL (<2.0)
[2018-11-14 21:00] LABS: RBC,Urine > 182.0 /HPF (0.0-6.0)
--- NOTE | 2018-11-14 23:20 | Emergency Department Report ---
ED General Adult HPI - General Chief complaint: Dyspnea/Respdistress Stated complaint: BAD COUGH/ABDOMINAL PAIN Time Seen by Provider: 11/14/18 20:11 Source: patient Mode of arrival: Ambulatory Limitations: No Limitations - History of Present Illness Initial comments: 33yo F was seen last week for pneumonia. She states that she still has a constant cough that now causes chest pain. She also has abdominal pain that started last night with cramping and sharp pain. -: Gradual (CP gradually worsened with cough), Sudden (abdominal pain sudden) Location: chest, abdomen Radiation: non-radiation Severity scale (0 -10): 8 Quality: sharp Consistency: constant Improves with: none Worsens with: none Associated Symptoms: denies other symptoms Treatments Prior to Arrival: none - Related Data Previous Rx's Medication Instructions Recorded Last Taken Type metroNIDAZOLE [Metrogel] 60 gm TP QDAY #1 gel..gram. 06/13/15 Unknown Rx ALBUTEROL Inhaler (OR & NICU) 2 puff IH Q6H PRN #1 inhalation 02/11/18 Unknown Rx [ProAir HFA Inhaler] Amoxicillin/K Clav Tab [Augmentin 1 tab PO Q12HR #20 tab 02/11/18 Unknown Rx 875MG TAB] Cetirizine HCl [ZyrTEC] 10 mg PO QAM 14 Days #14 capsule 02/11/18 Unknown Rx Fluconazole [Diflucan TAB] 100 mg PO QDAY 2 Days #2 tablet 02/11/18 Unknown Rx Fluticasone [Flonase] 1 spray NS QDAY 14 Days #1 bottle 02/11/18 Unknown Rx guaiFENesin/CODEINE [Robitussin AC] 10 ml PO QHS PRN #70 oral.liqd 02/11/18 Unknown Rx predniSONE [Deltasone] 50 mg PO QDAY 3 Days #3 tab 02/11/18 Unknown Rx ALBUTEROL Inhaler(NF) [VENTOLIN 1 puff IH Q4-6H PRN #1 inha 03/28/18 Unknown Rx Inhaler(NF)] Furosemide [Lasix TAB] 40 mg PO QDAY #30 tablet 03/28/18 Unknown Rx Prednisone [predniSONE 10 mg 10 mg PO .TAPER #1 tab.ds.pk 03/28/18 Unknown Rx (6-Day Pack, 21 Tabs)] levoFLOXacin [Levaquin TAB] 750 mg PO QDAY #7 tablet 03/28/18 Unknown Rx HYDROcodone/APAP 5-325 [[place] 1 each PO Q6HR PRN #14 tablet 04/14/18 Unknown Rx 5/325] Ondansetron [Zofran Odt] 4 mg PO Q8HR PRN #14 tab.rapdis 04/14/18 Unknown Rx ALBUTEROL Inhaler (OR & NICU) 1 puff IH Q4-6H PRN #1 inha 06/24/18 Unknown Rx [ProAir HFA Inhaler] Azithromycin [Zithromax] 500 mg PO QDAY #5 tablet 06/24/18 Unknown Rx Benzonatate [Tessalon Perles] 100 mg PO Q8HR #30 capsule 06/24/18 Unknown Rx guaiFENesin/CODEINE [Robitussin AC] 5 ml PO Q6H PRN #120 ml 06/24/18 Unknown Rx Acetaminophen [Arthritis Pain 650 mg PO Q6HR PRN #30 tablet.er 07/23/18 Unknown Rx Relief] metroNIDAZOLE [Flagyl TAB] 500 mg PO Q12HR #14 tab 08/14/18 Unknown Rx ALBUTEROL Inhaler (OR & NICU) 1 puff IH Q4-6H PRN #1 inha 11/04/18 Unknown Rx [ProAir HFA Inhaler] Azithromycin [Zithromax] 500 mg PO QDAY #5 tablet 11/04/18 Unknown Rx guaiFENesin/CODEINE [Robitussin AC] 5 ml PO Q6H PRN #120 ml 11/04/18 Unknown Rx Amoxicillin/Potassium Clav 1 each PO BID 10 Days #20 tablet 11/14/18 Unknown Rx [Augmentin 875-125 Tablet] Allergies Allergy/AdvReac Type Severity Reaction Status Date / Time ibuprofen [From Motrin] Allergy Hives Verified 11/04/18 12:40 ED Review of Systems ROS: Stated complaint: BAD COUGH/ABDOMINAL PAIN Other details as noted in HPI Comment: All other systems reviewed and negative Constitutional: denies: chills, fever Eyes: denies: eye pain, eye discharge, vision change ENT: denies: ear pain, throat pain Respiratory: cough Cardiovascular: chest pain (with cough only) Endocrine: no symptoms reported Gastrointestinal: denies: abdominal pain, nausea, diarrhea Genitourinary: denies: urgency, dysuria, discharge Musculoskeletal: denies: back pain, joint swelling, arthralgia Skin: denies: rash, lesions Neurological: denies: headache, weakness, paresthesias Psychiatric: denies: anxiety, depression Hematological/Lymphatic: denies: easy bleeding, easy bruising ED Past Medical Hx - Past Medical History Hx Hypertension: Yes Hx Renal Disease: Yes Hx Asthma: Yes Additional medical history: Anemia, pneumonia - Surgical History Additional Surgical History: right shoulder surgery. neck surgery - Social History Smoking Status: Never Smoker Substance Use Type: None - Medications Home Medications: Home Medications Medication Instructions Recorded Confirmed Last Taken Type metroNIDAZOLE [Metrogel] 60 gm TP QDAY #1 gel..gram. 06/13/15 Unknown Rx ALBUTEROL Inhaler (OR & NICU) 2 puff IH Q6H PRN #1 inhalation 02/11/18 Unknown Rx [ProAir HFA Inhaler] Amoxicillin/K Clav Tab [Augmentin 1 tab PO Q12HR #20 tab 02/11/18 Unknown Rx 875MG TAB] Cetirizine HCl [ZyrTEC] 10 mg PO QAM 14 Days #14 capsule 02/11/18 Unknown Rx Fluconazole [Diflucan TAB] 100 mg PO QDAY 2 Days #2 tablet 02/11/18 Unknown Rx Fluticasone [Flonase] 1 spray NS QDAY 14 Days #1 bottle 02/11/18 Unknown Rx guaiFENesin/CODEINE [Robitussin AC] 10 ml PO QHS PRN #70 oral.liqd 02/11/18 Unknown Rx predniSONE [Deltasone] 50 mg PO QDAY 3 Days #3 tab 02/11/18 Unknown Rx ALBUTEROL Inhaler(NF) [VENTOLIN 1 puff IH Q4-6H PRN #1 inha 03/28/18 Unknown Rx Inhaler(NF)] Furosemide [Lasix TAB] 40 mg PO QDAY #30 tablet 03/28/18 Unknown Rx Prednisone [predniSONE 10 mg 10 mg PO .TAPER #1 tab.ds.pk 03/28/18 Unknown Rx (6-Day Pack, 21 Tabs)] levoFLOXacin [Levaquin TAB] 750 mg PO QDAY #7 tablet 03/28/18 Unknown Rx HYDROcodone/APAP 5-325 [[place] 1 each PO Q6HR PRN #14 tablet 04/14/18 Unknown Rx 5/325] Ondansetron [Zofran Odt] 4 mg PO Q8HR PRN #14 tab.rapdis 04/14/18 Unknown Rx ALBUTEROL Inhaler (OR & NICU) 1 puff IH Q4-6H PRN #1 inha 06/24/18 Unknown Rx [ProAir HFA Inhaler] Azithromycin [Zithromax] 500 mg PO QDAY #5 tablet 06/24/18 Unknown Rx Benzonatate [Tessalon Perles] 100 mg PO Q8HR #30 capsule 06/24/18 Unknown Rx guaiFENesin/CODEINE [Robitussin AC] 5 ml PO Q6H PRN #120 ml 06/24/18 Unknown Rx Acetaminophen [Arthritis Pain 650 mg PO Q6HR PRN #30 tablet.er 07/23/18 Unknown Rx Relief] metroNIDAZOLE [Flagyl TAB] 500 mg PO Q12HR #14 tab 08/14/18 Unknown Rx ALBUTEROL Inhaler (OR & NICU) 1 puff IH Q4-6H PRN #1 inha 11/04/18 Unknown Rx [ProAir HFA Inhaler] Azithromycin [Zithromax] 500 mg PO QDAY #5 tablet 11/04/18 Unknown Rx guaiFENesin/CODEINE [Robitussin AC] 5 ml PO Q6H PRN #120 ml 11/04/18 Unknown Rx Amoxicillin/Potassium Clav 1 each PO BID 10 Days #20 tablet 11/14/18 Unknown Rx [Augmentin 875-125 Tablet] ED Physical Exam - General Limitations: No Limitations General appearance: alert, in no apparent distress - Head Head exam: Present: atraumatic, normocephalic - Eye Eye exam: Present: normal appearance - ENT ENT exam: Present: mucous membranes moist - Neck Neck exam: Present: normal inspection - Respiratory Respiratory exam: Present: rhonchi - Cardiovascular Cardiovascular Exam: Present: regular rate, normal rhythm. Absent: systolic murmur, diastolic murmur, rubs, gallop - GI/Abdominal GI/Abdominal exam: Present: tenderness (RLQ) - Extremities Exam Extremities exam: Present: normal inspection - Back Exam Back exam: Present: normal inspection - Neurological Exam Neurological exam: Present: alert, oriented X3 - Psychiatric Psychiatric exam: Present: normal affect, normal mood - Skin Skin exam: Present: warm, dry, intact, normal color. Absent: rash ED Course Vital Signs 11/14/18 11/14/18 20:01 20:10 Temperature 98.5 F 98.5 F Pulse Rate 86 86 Respiratory 20 86 H Rate Blood Pressure 168/102 Blood Pressure 168/102 [right] O2 Sat by Pulse 96 96 Oximetry ED Medical Decision Making - Medical Decision Making 33yo F was seen last week for pneumonia. She states that she still has a constant cough that now causes chest pain. She also has abdominal pain that started last night with cramping and sharp pain. Chest x-ray was ordered to evaluate pain with cough. Pt declined chest x-ray. Pt's urine results showed an increase WBC count. Pt was treated with Augmentin to cover UTI and URI. Critical care attestation.: If time is entered above; I have spent that time in minutes in the direct care of this critically ill patient, excluding procedure time. ED Disposition Clinical Impression: Cough, Costal chondritis, UTI (urinary tract infection) Disposition: TO HOME OR SELFCARE Is pt being admited?: No Does the pt Need Aspirin: No Condition: Stable Instructions: Urinary Tract Infection in Women (ED), Costochondritis (ED) Additional Instructions: Pt was instructed to take antibiotics as directed, f/u with primary care provider and return ER as needed. Prescriptions: Amoxicillin/Potassium Clav [Augmentin 875-125 Tablet] 1 each PO BID 10 Days #20 tablet Referrals: NOEL GAMBOA MD [Primary Care Provider] - 3-5 Days Time of Disposition: 23:35
== END 2018-11-14 23:40 | disposition home or self-care (01) ==
LOC: ED 19:41
DX: M94.0 Chondrocostal junction syndrome [Tietze] (principal); N39.0 Urinary tract infection, site not specified; J45.909 Unspecified asthma, uncomplicated; I10 Essential (primary) hypertension; Z98.890 Other specified postprocedural states; Z88.6 Allergy status to analgesic agent
CPT/HCPCS: 81001; 81025; 87086

== ENCOUNTER 2019-04-22 18:34 | Emergency (ER) | payer SELFPAY ==
--- NOTE | 2019-04-22 19:23 | Event Note ---
ED Screening Note Date of service: 04/22/19 Time: 19:23 ED Screening Note: 33 yo F presents to ED w/ vaginal discharge x 1 week. Reports associated lower abdominal cramping and back pain. Reports subjective fever. This initial assessment/diagnostic orders/clinical plan/treatment(s) is/are s ubject to change based on patients health status, clinical progression and re- assessment by fellow clinical providers in the ED. Further treatment and workup at subsequent clinical providers discretion. Patient/guardian urged not to elope from the ED as their condition may be serious if not clinically assessed and managed. Initial orders include: UA UPT
[2019-04-22 19:54] LABS: Bilirubin,Urine NEG (Negative); Blood,Urine NEG (Negative); Color,Urine Yellow (Yellow); Mucus,Urine FEW /HPF; Protein,Urine <15 mg/dL mg/dL (Negative); Urobilinogen,Urine < 2.0 mg/dL (<2.0)
[2019-04-22 19:55] LABS: HCG Qualitative,Urine Negative (Negative)
--- NOTE | 2019-04-22 22:24 | Emergency Department Report ---
ED Female HPI - General Chief complaint: Urogenital-Female Stated complaint: DISCHARGE Time Seen by Provider: 04/22/19 22:15 Source: patient Mode of arrival: Ambulatory Limitations: No Limitations - History of Present Illness Initial comments: Patient is a 33-year-old female presents emergency room with complaints of vaginal discharge that began a week to week and half ago. She states that it is milky and has a foul odor. She states that she also has vaginal itching. She states that she has lower abdominal cramping. She denies any dysuria, lesions or blisters on the vagina, nausea, vomiting, diarrhea, fever. She states she has a past medical history of hypertension and is supposed to be taking lisinopril HCTZ but has not been taking it states she ran out. She needs a primary care physician referral. She states she has an allergy to ibuprofen. She states her last menstrual cycle was a week ago. - Related Data Previous Rx's Medication Instructions Recorded Last Taken Type metroNIDAZOLE [Metrogel] 60 gm TP QDAY #1 gel..gram. 06/13/15 Unknown Rx Albuterol INH(or & Nicu Only) 2 puff IH Q6H PRN #1 inhalation 02/11/18 Unknown Rx [ProAir HFA Inhaler] Amoxicillin/K Clav Tab [Augmentin 1 tab PO Q12HR #20 tab 02/11/18 Unknown Rx 875MG TAB] Cetirizine HCl [ZyrTEC] 10 mg PO QAM 14 Days #14 capsule 02/11/18 Unknown Rx Fluconazole [Diflucan TAB] 100 mg PO QDAY 2 Days #2 tablet 02/11/18 Unknown Rx Fluticasone [Flonase] 1 spray NS QDAY 14 Days #1 bottle 02/11/18 Unknown Rx guaiFENesin/CODEINE [Robitussin AC] 10 ml PO QHS PRN #70 oral.liqd 02/11/18 Unknown Rx predniSONE [Deltasone] 50 mg PO QDAY 3 Days #3 tab 02/11/18 Unknown Rx ALBUTEROL Inhaler(NF) [VENTOLIN 1 puff IH Q4-6H PRN #1 inha 03/28/18 Unknown Rx Inhaler(NF)] Furosemide [Lasix TAB] 40 mg PO QDAY #30 tablet 03/28/18 Unknown Rx Prednisone [predniSONE 10 mg 10 mg PO .TAPER #1 tab.ds.pk 03/28/18 Unknown Rx (6-Day Pack, 21 Tabs)] levoFLOXacin [Levaquin TAB] 750 mg PO QDAY #7 tablet 03/28/18 Unknown Rx HYDROcodone/APAP 5-325 [[place] 1 each PO Q6HR PRN #14 tablet 04/14/18 Unknown Rx 5/325] Ondansetron [Zofran Odt] 4 mg PO Q8HR PRN #14 tab.rapdis 04/14/18 Unknown Rx Albuterol INH(or & Nicu Only) 1 puff IH Q4-6H PRN #1 inha 06/24/18 Unknown Rx [ProAir HFA Inhaler] Azithromycin [Zithromax] 500 mg PO QDAY #5 tablet 06/24/18 Unknown Rx Benzonatate [Tessalon Perles] 100 mg PO Q8HR #30 capsule 06/24/18 Unknown Rx guaiFENesin/CODEINE [Robitussin AC] 5 ml PO Q6H PRN #120 ml 06/24/18 Unknown Rx Acetaminophen [Arthritis Pain 650 mg PO Q6HR PRN #30 tablet.er 07/23/18 Unknown Rx Relief] Albuterol INH(or & Nicu Only) 1 puff IH Q4-6H PRN #1 inha 11/04/18 Unknown Rx [ProAir HFA Inhaler] Azithromycin [Zithromax] 500 mg PO QDAY #5 tablet 11/04/18 Unknown Rx guaiFENesin/CODEINE [Robitussin AC] 5 ml PO Q6H PRN #120 ml 11/04/18 Unknown Rx Amoxicillin/Potassium Clav 1 each PO BID 10 Days #20 tablet 11/14/18 Unknown Rx [Augmentin 875-125 Tablet] Lisinopril/Hydrochlorothiazide 1 each PO DAILY #14 tablet 04/22/19 Unknown Rx [Zestoretic 10-12.5 mg Tablet] metroNIDAZOLE [Flagyl TAB] 500 mg PO Q12HR #14 tab 04/22/19 Unknown Rx Allergies Allergy/AdvReac Type Severity Reaction Status Date / Time ibuprofen [From Motrin] Allergy Hives Verified 11/04/18 12:40 ED Review of Systems ROS: Stated complaint: DISCHARGE Other details as noted in HPI Comment: All other systems reviewed and negative ED Past Medical Hx - Past Medical History Hx Hypertension: Yes Hx Renal Disease: Yes Hx Asthma: Yes Additional medical history: Anemia, pneumonia - Surgical History Additional Surgical History: right shoulder surgery. neck surgery - Social History Smoking Status: Never Smoker Substance Use Type: Alcohol - Medications Home Medications: Home Medications Medication Instructions Recorded Confirmed Last Taken Type metroNIDAZOLE [Metrogel] 60 gm TP QDAY #1 gel..gram. 06/13/15 Unknown Rx Albuterol INH(or & Nicu Only) 2 puff IH Q6H PRN #1 inhalation 02/11/18 Unknown Rx [ProAir HFA Inhaler] Amoxicillin/K Clav Tab [Augmentin 1 tab PO Q12HR #20 tab 02/11/18 Unknown Rx 875MG TAB] Cetirizine HCl [ZyrTEC] 10 mg PO QAM 14 Days #14 capsule 02/11/18 Unknown Rx Fluconazole [Diflucan TAB] 100 mg PO QDAY 2 Days #2 tablet 02/11/18 Unknown Rx Fluticasone [Flonase] 1 spray NS QDAY 14 Days #1 bottle 02/11/18 Unknown Rx guaiFENesin/CODEINE [Robitussin AC] 10 ml PO QHS PRN #70 oral.liqd 02/11/18 Unknown Rx predniSONE [Deltasone] 50 mg PO QDAY 3 Days #3 tab 02/11/18 Unknown Rx ALBUTEROL Inhaler(NF) [VENTOLIN 1 puff IH Q4-6H PRN #1 inha 03/28/18 Unknown Rx Inhaler(NF)] Furosemide [Lasix TAB] 40 mg PO QDAY #30 tablet 03/28/18 Unknown Rx Prednisone [predniSONE 10 mg 10 mg PO .TAPER #1 tab.ds.pk 03/28/18 Unknown Rx (6-Day Pack, 21 Tabs)] levoFLOXacin [Levaquin TAB] 750 mg PO QDAY #7 tablet 03/28/18 Unknown Rx HYDROcodone/APAP 5-325 [[place] 1 each PO Q6HR PRN #14 tablet 04/14/18 Unknown Rx 5/325] Ondansetron [Zofran Odt] 4 mg PO Q8HR PRN #14 tab.rapdis 04/14/18 Unknown Rx Albuterol INH(or & Nicu Only) 1 puff IH Q4-6H PRN #1 inha 06/24/18 Unknown Rx [ProAir HFA Inhaler] Azithromycin [Zithromax] 500 mg PO QDAY #5 tablet 06/24/18 Unknown Rx Benzonatate [Tessalon Perles] 100 mg PO Q8HR #30 capsule 06/24/18 Unknown Rx guaiFENesin/CODEINE [Robitussin AC] 5 ml PO Q6H PRN #120 ml 06/24/18 Unknown Rx Acetaminophen [Arthritis Pain 650 mg PO Q6HR PRN #30 tablet.er 07/23/18 Unknown Rx Relief] Albuterol INH(or & Nicu Only) 1 puff IH Q4-6H PRN #1 inha 11/04/18 Unknown Rx [ProAir HFA Inhaler] Azithromycin [Zithromax] 500 mg PO QDAY #5 tablet 11/04/18 Unknown Rx guaiFENesin/CODEINE [Robitussin AC] 5 ml PO Q6H PRN #120 ml 11/04/18 Unknown Rx Amoxicillin/Potassium Clav 1 each PO BID 10 Days #20 tablet 11/14/18 Unknown Rx [Augmentin 875-125 Tablet] Lisinopril/Hydrochlorothiazide 1 each PO DAILY #14 tablet 04/22/19 Unknown Rx [Zestoretic 10-12.5 mg Tablet] metroNIDAZOLE [Flagyl TAB] 500 mg PO Q12HR #14 tab 04/22/19 Unknown Rx ED Physical Exam - General Limitations: No Limitations General appearance: alert, in no apparent distress - Head Head exam: Present: atraumatic, normocephalic - Eye Eye exam: Present: normal appearance - ENT ENT exam: Present: mucous membranes moist - Respiratory Respiratory exam: Present: normal lung sounds bilaterally. Absent: respiratory distress, wheezes, rales, rhonchi, stridor, chest wall tenderness, accessory muscle use, decreased breath sounds, prolonged expiratory - Cardiovascular Cardiovascular Exam: Present: regular rate, normal rhythm, normal heart sounds. Absent: systolic murmur, diastolic murmur, rubs, gallop - GI/Abdominal GI/Abdominal exam: Present: soft, normal bowel sounds. Absent: distended, tenderness, guarding, rebound, rigid - External exam: Present: normal external exam. Absent: erythema, swelling, lesions, lacerations, ecchymosis, bleeding Speculum exam: Present: vaginal discharge (white, fishy odor), cervical discharge (white, fishy odor), other (pantograph setter: MARIELLA Narvaez). Absent: erythema, vaginal bleeding, foreign body, tissue, laceration Bi-manual exam: Present: normal bi-manual exam. Absent: cervical motion tendernes, adnexal tenderness, adnexal mass - Neurological Exam Neurological exam: Present: alert, oriented X3 - Psychiatric Psychiatric exam: Present: normal affect, normal mood - Skin Skin exam: Present: warm, dry, intact ED Course Vital Signs 04/22/19 23:09 Temperature 98.1 F Pulse Rate 67 Respiratory 18 Rate Blood Pressure 150/86 [Left] O2 Sat by Pulse 99 Oximetry ED Medical Decision Making - Medical Decision Making Patient is a 33-year-old female presents emergency room with complaints of vaginal discharge that began a week to week and half ago. She states that it is milky and has a foul odor. She states that she also has vaginal itching. She states that she has lower abdominal cramping. She denies any dysuria, lesions or blisters on the vagina, nausea, vomiting, diarrhea, fever. She states she has a past medical history of hypertension and is supposed to be taking lisinopril HCTZ but has not been taking it states she ran out. She needs a primary care physician referral. She states she has an allergy to ibuprofen. She states her last menstrual cycle was a week ago. VSS. on exam: white vaginal/cervix discharge with fishy odor, no CMT, no adnexal masses or tenderness, pantograph setter: MARIELLA narvaez. urine preg negative. UA small amount WBCs, small amount leukocyte esterase, no nitrites, pt not experiencing urinary sx, will await urine culture results. wet prep shows evidence of BV, given prescription for flagyl. G/C swab sent, pt prophylactically treated for G/C with ceftriaxone and azithromycin. advised pt Please take medication as prescribed. Do not drink alcohol while taking medication. Please go to medical records in one week with your drivers license for results of your tests but you have already been treated for these today. Please go to the health department for full STD panel. Please have your partner tested and treated as well. Avoid sexual intercourse for 10 days. Please follow-up with a primary care physician and a [facility] in the next 2-3 days. Given 2 week refill of your blood pressure medication but future refills need to be through a primary care physician. Please keep a blood pressure log and take your blood pressure 3 times a day. Eat a low-sodium diet. Incorporate daily exercise. Increase your water intake. Return to the emergency room for any new or worsening symptoms. - Differential Diagnosis PID, TOA, UTI, STD, BV, yeast, vaginitis, Critical care attestation.: If time is entered above; I have spent that time in minutes in the direct care of this critically ill patient, excluding procedure time. ED Disposition Clinical Impression: Vaginal discharge, Bilateral lower abdominal cramping, Vaginal itching, Bacterial vaginosis HTN (hypertension) Qualifiers: Hypertension type: essential hypertension Qualified Code(s): I10 - Essential (primary) hypertension Disposition: - TO HOME OR SELFCARE Is pt being admited?: No Does the pt Need Aspirin: No Condition: Stable Instructions: Bacterial Vaginosis (ED), Sexually Transmitted Diseases (ED), Safe Sex (ED), Hypertension (ED) Additional Instructions: Please take medication as prescribed. Do not drink alcohol while taking medication. Please go to medical records in one week with your drivers license for results of your tests but you have already been treated for these today. Please go to the health department for full STD panel. Please have your partner tested and treated as well. Avoid sexual intercourse for 10 days. Please follow-up with a primary care physician and a [facility] SUPERVIS[facility] in the next 2-3 days. Given 2 week refill of your blood pressure medication but future refills need to be through a primary care physician. Please keep a blood pressure log and take your blood pressure 3 times a day. Eat a low-sodium diet. Incorporate daily exercise. Increase your water intake. Return to the emergency room for any new or worsening symptoms. Prescriptions: metroNIDAZOLE [Flagyl TAB] 500 mg PO Q12HR #14 tab Lisinopril/Hydrochlorothiazide [Zestoretic 10-12.5 mg Tablet] 1 each PO DAILY #14 tablet Referrals: RICH ANDREWS MD [Staff Physician] - 3-5 Days [facility] [Outside] - 3-5 Days [facility] [Outside] - 3-5 Days [facility] [Provider Group] - 3-5 Days [facility] [Provider Group] - 3-5 Days [facility] [Provider Group] - 3-5 Days Forms: STI Treatment and Prevention Time of Disposition: 22:51 Print Language: RWANDAN
[2019-04-22] MEDS ORDERED: ALBUTEROL 2.5 MG/3 ML NEBU IH ONE (22:35)
[2019-04-22] MEDS ORDERED: IPRATROPIUM 0.02% NEBU 2.5 ML IH ONE (22:35)
[2019-04-22] MEDS ORDERED: LIDOCAINE-MPF (1%) 10 MG/1 ML VIAL 5 ML INFILTRATI ONE (22:36)
[2019-04-22] MEDS ORDERED: AZITHROMYCIN 1 GM ORAL PWDR PACKET PO ONE (22:36)
[2019-04-22 23:10] VITALS: BP 150/86
== END 2019-04-22 23:10 | disposition home or self-care (01) ==
LOC: ED 18:34
DX: N76.0 Acute vaginitis (principal); B96.89 Other specified bacterial agents as the cause of diseases classified elsewhere; I10 Essential (primary) hypertension; J45.909 Unspecified asthma, uncomplicated; Z88.6 Allergy status to analgesic agent; Z98.890 Other specified postprocedural states; Z79.899 Other long term (current) drug therapy; Z86.2 Personal history of diseases of the blood and blood-forming organs and certain disorders involving the immune mechanism
CPT/HCPCS: 81001; 81025; 87086; 87210; 87591; 96372; 99283; J0696

== ENCOUNTER 2019-04-27 16:01 | Emergency (ER) | payer SELFPAY ==
[2019-04-27 17:19] VITALS: BP 140/88
--- NOTE | 2019-04-27 17:22 | Emergency Department Report ---
Chief Complaint: Urogenital-Female Stated Complaint: REACTION TO MEDS Time Seen by Provider: 04/27/19 17:18 - HPI History of Present Illness: 33 y/o fem recently here, dx with bv, d/c with flagyl and lisinopril, hctz/lisinopril combination p/w painless vaginal itch no other complaints states not bp 140/88 no other complaints no emergent condition detected at this time outpatient resources provided recent chart, labs reviewed cultures reviewed there is no facial droop. The tongue is midline. The extraocular movements are intact bilaterally. Hearing is intact. Phonation is within normal limits. Speech is fluid and luccid. There is 5 out of 5 strength in 4 extremities. Sensation is intact to light touch in 4 extremities. 2+ pulses noted in the bilateral upper extremities. There is no long bony tenderness. The abdomen is soft and benign, with no rebound, guarding or peritoneal signs. Breath sounds clear to auscultation bilaterally. S1, S2, regular rate and rhythm. Head is normocephalic, atraumatic. The neck is supple. There is no adenopathy. Speaking in full sentences. There is a normal gait. Old chart, laboratory studies and cultures are reviewed from previous visit. Vital Signs 04/27/19 17:15 Temperature 98.6 F Respiratory 18 Rate Blood Pressure 140/88 O2 Sat by Pulse 100 Oximetry MSE screening note: Focused history and physical exam performed. Due to findings the following was ordered: ED Disposition for MSE Clinical Impression: History of vaginal discharge, Encounter for medical screening examination Disposition: Z-07 MED SCREENING EXAM-LEFT Is pt being admited?: No Does the pt Need Aspirin: No Condition: Good Additional Instructions: Continue outpatient medications. Follow up with an outpatient liturgical music director or health department. Return to the emergency room right away with new, worsening or different symptoms, or symptoms not present on the initial emergency room evaluation. Referrals: PRIMARY CARE [Primary Care Provider] - 3-5 Days [facility] [Provider Group] - 3-5 Days [facility] [Provider Group] - 3-5 Days [facility] [Provider Group] - 3-5 Days [facility] [employer] [facility] [Provider Group] - 3-5 Days [facility] [Outside] - 3-5 Days
== END 2019-04-27 18:00 | disposition left against medical advice (07) ==
LOC: ED 16:01
DX: L29.2 Pruritus vulvae (principal); Z88.6 Allergy status to analgesic agent
CPT/HCPCS: 99281

== ENCOUNTER 2019-11-01 13:31 | Inpatient (IN) | payer OTHER ==
--- NOTE | 2019-11-01 13:51 | Event Note ---
ED Screening Note ED Screening Note: recently tx for covid at [place] fever/tachy here with sick child This initial assessment/diagnostic orders/clinical plan/treatment(s) is/are subject to change based on patients health status, clinical progression and re- assessment by fellow clinical providers in the ED. Further treatment and workup at subsequent clinical providers discretion. Patient/guardian urged not to elope from the ED as their condition may be serious if not clinically assessed and managed. Initial orders include: pui/sepsis
[2019-11-01] MEDS ORDERED: ACETAMINOPHEN 500 MG TAB PO ONE (14:01)
[2019-11-01] MEDS ORDERED: SODIUM CHLORIDE 0.9% 1000 ML 1,000 ML IV ONE (14:09)
[2019-11-01 14:12] LABS: Bilirubin,Urine NEG (Negative); Blood,Urine LG (Negative); Color,Urine Yellow (Yellow); Mucus,Urine FEW /HPF; Urobilinogen,Urine < 2.0 mg/dL (<2.0)
[2019-11-01 14:34] LABS: HCG Qualitative,Urine Negative (Negative)
--- NOTE | 2019-11-01 14:49 | XRay Report ---
CHEST 2 VIEWS INDICATION / CLINICAL INFORMATION: sob. COMPARISON: 11/04/2018 FINDINGS: SUPPORT DEVICES: None. HEART / MEDIASTINUM: No significant abnormality. LUNGS / PLEURA: There are patchy bilateral airspace opacities in the mid to lower lungs, left greater than right. No pneumothorax. ADDITIONAL FINDINGS: No significant additional findings. IMPRESSION: 1. Patchy bilateral airspace disease, greater on the left. This is concerning for pneumonia. Findings are similar to the exam from one year prior. Signer Name: Jessee Betancourt MD Signed: 11/01/2019 2:44 PM Workstation Name: [id number]
[2019-11-01] MEDS ORDERED: AZITHROMYCIN 500 MG in SODIUM CHLORIDE 0.9% 250ML 250 ML IV SCH (15:00)
--- NOTE | 2019-11-01 15:41 | Emergency Department Report ---
- General Chief Complaint: Dyspnea/Respdistress Stated Complaint: SOB Time Seen by Provider: 11/01/19 13:51 Source: patient Mode of arrival: Ambulatory Limitations: No Limitations - History of Present Illness Initial Comments: 34-year-old obese -[place] female past medical history of hypertension presents to the emergency department complaining of worsening viral syndrome /coronavirus symptoms. States that she was seen at [facility] on yesterday and diagnosed with coronavirus and lung infiltrate started on Zithromax and states that today she feels significantly worse having more chest pain shortness of breath which worsens with with ambulation or standing. Symptoms also associated with nausea. She reports myalgias and malaise no hemoptysis, no hematemesis, no hematochezia. She also presents with her 5-year-old son who has symptoms of fever cough and diarrhea earlier today but symptoms have improved. MD Complaint: fever, rhinorrhea, nasal congestion Associated Symptoms: cough, shortness of breath - Related Data Home Medications Medication Instructions Recorded Confirmed Last Taken No Known Home Medications [No 11/01/19 11/01/19 Unknown Reported Home Medications] Allergies Allergy/AdvReac Type Severity Reaction Status Date / Time ibuprofen [From Motrin] Allergy Hives Verified 11/01/19 14:00 ED Review of Systems ROS: Stated complaint: SOB Other details as noted in HPI Comment: All other systems reviewed and negative ED Past Medical Hx - Past Medical History Previous Medical History?: Yes Hx Hypertension: Yes Hx Renal Disease: Yes Hx Asthma: Yes Additional medical history: Anemia, pneumonia - Surgical History Past Surgical History?: Yes Additional Surgical History: right shoulder surgery. neck surgery - Social History Smoking Status: Never Smoker Substance Use Type: None - Medications Home Medications: Home Medications Medication Instructions Recorded Confirmed Last Taken Type No Known Home Medications [No 11/01/19 11/01/19 Unknown History Reported Home Medications] ED Physical Exam - General Limitations: No Limitations General appearance: alert, in distress (Mild but able to speak with occasional pausing) - Head Head exam: Present: atraumatic, normocephalic - Eye Eye exam: Present: normal appearance - ENT ENT exam: Present: mucous membranes moist - Neck Neck exam: Present: normal inspection - Respiratory Respiratory exam: Present: normal lung sounds bilaterally, rhonchi. Absent: re spiratory distress - Cardiovascular Cardiovascular Exam: Present: normal rhythm, tachycardia. Absent: systolic murmur, diastolic murmur, rubs, gallop - GI/Abdominal GI/Abdominal exam: Present: soft, normal bowel sounds - Extremities Exam Extremities exam: Present: normal inspection - Back Exam Back exam: Present: normal inspection - Neurological Exam Neurological exam: Present: alert, oriented X3 - Psychiatric Psychiatric exam: Present: normal affect, normal mood - Skin Skin exam: Present: warm, dry, intact, normal color. Absent: rash ED Course Vital Signs 11/01/19 11/01/19 11/01/19 13:56 18:12 22:00 Temperature 102.7 F H Pulse Rate 123 H 81 Respiratory 24 Rate Blood Pressure 131/82 [Right] O2 Sat by Pulse 100 100 Oximetry 11/01/19 22:12 Temperature Pulse Rate Respiratory Rate Blood Pressure [Right] O2 Sat by Pulse 97 Oximetry ED Medical Decision Making - Lab Data Result diagrams: 11/02/19 05:14 11/02/19 05:14 - Radiology Data Radiology results: report reviewed Report Status:Finalized Findings [address] [address] XRay Report Signed Patient: FARHEEN HERNANDEZ MR#: [id number] : 1985 Acct:[id number] Age/Sex: 34 / F ADM Date: 11/01/19 Loc: ED Attending Dr: Ordering Physician: TALYA DEL TORO Date of Service: 11/01/19 Procedure(s): XR chest routine 2V Accession Number(s): [id number] cc: TALYA DEL TORO Fluoro Time In Minutes: CHEST 2 VIEWS INDICATION / CLINICAL INFORMATION: sob. COMPARISON: 11/04/2018 FINDINGS: SUPPORT DEVICES: None. HEART / MEDIASTINUM: No significant abnormality. LUNGS / PLEURA: There are patchy bilateral airspace opacities in the mid to lower lungs, left greater than right. No pneumothorax. ADDITIONAL FINDINGS: No significant additional findings. IMPRESSION: 1. Patchy bilateral airspace disease, greater on the left. This is concerning for pneumonia. Findings are similar to the exam from one year prior. Signer Name: Jessee Betancourt MD Signed: 11/01/2019 2:44 PM Workstation Name: [id number] Transcribed By: MARLA Dictated By: Jessee Betancourt MD Electronically Authenticated By: Jessee Betancourt MD Signed Date/Time: 11/01/191443 DD/ 41 TD/TT: - Medical Decision Making This patient presents to the emergency department with fever and lower resp iratory symptoms concerning for viral syndrome including flu and COVID-19. Patient is appears to be ill with some concerning vital signs including tachycardia and symptoms that worsen with ambulation patient presentation suspicious for COVID-19 infection patient requires admission for the symptoms including tachycardia, chest pain, shortness of breath, exertional dyspnea and exertional hypoxemia. Differential diagnosis includes other viral causes of lower respiratory tract infection, pneumonia, less likely PE, pneumothorax, primary cardiovascular causes, bacterial sepsis, other severe metabolic/ischemic derangements. Will swab for COVID-19 placed in hands precautions and admit to medicine Critical care attestation.: If time is entered above; I have spent that time in minutes in the direct care of this critically ill patient, excluding procedure time. ED Disposition Clinical Impression: Bilateral pneumonia, Acute respiratory failure with hypoxia, Person under investigation for COVID-19 Disposition: OP ADMIT IP TO THIS HOSP Is pt being admited?: Yes Does the pt Need Aspirin: No Condition: Stable
[2019-11-01 16:11] LABS: Basophils # (Auto) 0.1 K/mm3 (0.0-0.1); Basophils % (Auto) 0.9 % (0.0-1.8); Hematocrit 31.1 % (30.3-42.9); Hemoglobin 9.4 gm/dl (10.1-14.3); Lymphocytes # (Auto) 1.5 K/mm3 (1.2-5.4); Lymphocytes % (Auto) 19.4 % (13.4-35.0); Mean Corpuscular HGB Conc 30 % (30-34); Monocytes # (Auto) 0.4 K/mm3 (0.0-0.8); Monocytes % (Auto) 5.7 % (0.0-7.3); Platelet Count 338 K/mm3 (140-440); Red Blood Count 4.82 M/mm3 (3.65-5.03); Red Cell Distribution Width 19.2 % (13.2-15.2)
[2019-11-01 16:13] LABS: Mean Corpuscular Volume 65 fl (79-97)
[2019-11-01 16:42] LABS: Alanine Aminotransferase 12 units/L (7-56); Albumin 3.9 g/dL (3.9-5); BUN/Creatinine Ratio 13; Blood Urea Nitrogen 15 mg/dL (7-17); Calcium 8.4 mg/dL (8.4-10.2); Hemolysis Index 5
[2019-11-01] MEDS ORDERED: ONDANSETRON 4 MG/2 ML INJ IV PRN (22:51)
[2019-11-01] MEDS ORDERED: ACETAMINOPHEN 325 MG TAB PO PRN (22:51)
[2019-11-01] MEDS ORDERED: dexAMETHasone 4 MG/ML VIAL IV SCH (23:00)
--- NOTE | 2019-11-01 23:01 | History and Physical Report ---
History of Present Illness Date of examination: 11/01/19 Date of admission: 11/01/19 16:55 Chief complaint: Cough and shortness of breath for 3 days History of present illness: 34-year-old female with history of hypertension and asthmatic bronchitis comes in for fever and cough and shortness of breath for 3 days. Patient was apparently seen at [facility] yesterday and was diagnosed with pneumonia and was given Zithromax and sent home. Shortness of breath is worsening especially with ambulation. Also nausea. Also now myalgias and malaise. Patient also has a 5-year-old son with symptoms of fever cough and diarrhea which have improved. She is not sure about coronavirus exposure. Patient has recurrent asthmatic antibiotics and bronchitis. No exacerbating or relieving factors. - Past Medical History Previous Medical History?: Yes Hx Hypertension: Yes Hx Renal Disease: Yes Hx Asthma: Yes Additional medical history: Anemia, pneumonia - Surgical History Past Surgical History?: Yes Additional Surgical History: right shoulder surgery. neck surgery - Social History Smoking Status: Never Smoker Substance Use Type: None - Review of Systems ROS: Constitutional fever and myalgias and shortness of breath present. HEENT no sore throat no post nasal drip no diplopia Neck no neck stiffness no lymph gland enlargement Chest and lungs fever and shortness of breath present. Also cough present. CVS no chest pain no diaphoresis no palpitations GI no nausea no vomiting no diarrhea Genitourinary system no dysuria no flank pain Musculoskeletal system no muscle pains no joint pains [employer] no syncope no seizures Skin no rash no itching Psychiatric no depression no homicidal or suicidal tendencies Hematologic no lymphedema or bruising Endocrine no polydipsia no polyuria no cold intolerance no heat intolerance Medications and Allergies Allergies Allergy/AdvReac Type Severity Reaction Status Date / Time ibuprofen [From Motrin] Allergy Hives Verified 11/01/19 14:00 Home Medications Medication Instructions Recorded Confirmed Last Taken Type No Known Home Medications [No 11/01/19 11/01/19 Unknown History Reported Home Medications] Active Meds: Active Medications Azithromycin 500 mg/ Sodium (Chloride) 250 mls @ 250 mls/hr IV Q24HR [facility]; Protocol Last Admin: 11/01/19 14:45 Dose: 250 mls/hr Documented by: Exam - Constitutional Vitals: Temp Pulse Resp BP Pulse Ox 102.7 F H 123 H 24 131/82 100 11/01/19 13:56 11/01/19 13:56 11/01/19 13:56 11/01/19 13:56 11/01/19 18:12 General appearance: Present: mild distress, well-nourished - EENT Eyes: Present: PERRL ENT: hearing intact, clear oral mucosa - Neck Neck: Present: supple, normal ROM - Respiratory Respiratory effort: normal Respiratory: bilateral: CTA, rhonchi (Scattered rhonchi) - Cardiovascular Heart rate: 78 Rhythm: regular Heart Sounds: Present: S1 & S2. Absent: rub, click - Extremities Extremities: no ischemia, pulses intact, pulses symmetrical, No edema Peripheral Pulses: within normal limits - Abdominal General gastrointestinal: Present: soft, non-tender, non-distended, normal bowel sounds Female genitourinary: Present: normal - Integumentary Integumentary: Present: clear, warm, dry - Musculoskeletal Musculoskeletal: gait normal, strength equal bilaterally - Psychiatric Psychiatric: appropriate mood/affect, intact judgment & insight - Neurologic Neurologic: CNII-XII intact, moves all extremities - Allied Health Allied health notes reviewed: nursing, case management Results - Labs CBC & Chem 7: 11/02/19 05:14 11/02/19 05:14 Labs: Laboratory Last Values WBC 7.6 K/mm3 (4.5-11.0) 11/01/19 15:36 RBC 4.82 M/mm3 (3.65-5.03) 11/01/19 15:36 Hgb 9.4 gm/dl (10.1-14.3) L 11/01/19 15:36 Hct 31.1 % (30.3-42.9) 11/01/19 15:36 MCV 65 fl (79-97) L 11/01/19 15:36 MCH 20 pg (28-32) L 11/01/19 15:36 MCHC 30 % (30-34) 11/01/19 15:36 RDW 19.2 % (13.2-15.2) H 11/01/19 15:36 Plt Count 338 K/mm3 (140-440) 11/01/19 15:36 Lymph % (Auto) 19.4 % (13.4-35.0) 11/01/19 15:36 [place] % (Auto) 5.7 % (0.0-7.3) 11/01/19 15:36 Eos % (Auto) 0.0 % (0.0-4.3) 11/01/19 15:36 Baso % (Auto) 0.9 % (0.0-1.8) 11/01/19 15:36 Lymph # 1.5 K/mm3 (1.2-5.4) 11/01/19 15:36 [place] # 0.4 K/mm3 (0.0-0.8) 11/01/19 15:36 Eos # 0.0 K/mm3 (0.0-0.4) 11/01/19 15:36 Baso # 0.1 K/mm3 (0.0-0.1) 11/01/19 15:36 Seg Neutrophils % 74.0 % (40.0-70.0) H 11/01/19 15:36 Seg Neutrophils # 5.7 K/mm3 (1.8-7.7) 11/01/19 15:36 D-Dimer 241.42 ng/mlDDU (0-234) H 11/01/19 15:36 Sodium 135 mmol/L (137-145) L 11/01/19 15:36 Potassium 3.8 mmol/L (3.6-5.0) 11/01/19 15:36 Chloride 103.3 mmol/L (98-107) 11/01/19 15:36 Carbon Dioxide 19 mmol/L (22-30) L 11/01/19 15:36 Anion Gap 17 mmol/L 11/01/19 15:36 BUN 15 mg/dL (7-17) 11/01/19 15:36 Creatinine 1.2 mg/dL (0.6-1.2) 11/01/19 15:36 Estimated GFR > 60 ml/min 11/01/19 15:36 BUN/Creatinine Ratio 13 % 11/01/19 15:36 Glucose 93 mg/dL (65-100) 11/01/19 15:36 Lactic Acid 1.10 mmol/L (0.7-2.0) 11/01/19 15:36 Calcium 8.4 mg/dL (8.4-10.2) 11/01/19 15:36 Ferritin 116.2 ng/mL (10.0-200.0) 11/01/19 15:36 Total Bilirubin < 0.20 mg/dL (0.1-1.2) 11/01/19 15:36 AST 22 units/L (5-40) 11/01/19 15:36 ALT 12 units/L (7-56) 11/01/19 15:36 Alkaline Phosphatase 51 units/L (35-129) 11/01/19 15:36 Lactate Dehydrogenase 249 units/L (91-180) H 11/01/19 15:36 C-Reactive Protein 5.00 mg/dL (0.00-1.30) H 11/01/19 15:36 Total Protein 7.8 g/dL (6.3-8.2) 11/01/19 15:36 Albumin 3.9 g/dL (3.9-5) 11/01/19 15:36 Albumin/Globulin Ratio 1.0 % 11/01/19 15:36 Urine Color Yellow (Yellow) 11/01/19 Unknown Urine Turbidity Clear (Clear) 11/01/19 Unknown Urine pH 5.0 (5.0-7.0) 11/01/19 Unknown Ur Specific [place] 1.024 (1.003-1.030) 11/01/19 Unknown Urine Protein 30 mg/dl mg/dL (Negative) 11/01/19 Unknown Urine Glucose (UA) Neg mg/dL (Negative) 11/01/19 Unknown Urine Ketones Tr mg/dL (Negative) 11/01/19 Unknown Urine Blood Lg (Negative) 11/01/19 Unknown Urine Nitrite Neg (Negative) 11/01/19 Unknown Urine Bilirubin Neg (Negative) 11/01/19 Unknown Urine Urobilinogen < 2.0 mg/dL (<2.0) 11/01/19 Unknown Ur Leukocyte Esterase Neg (Negative) 11/01/19 Unknown Urine WBC (Auto) 5.0 /HPF (0.0-6.0) 11/01/19 Unknown Urine RBC (Auto) 66.0 /HPF (0.0-6.0) 11/01/19 Unknown U Epithel Cells (Auto) 1.0 /HPF (0-13.0) 11/01/19 Unknown Urine Mucus Few /HPF 11/01/19 Unknown Urine HCG, Qual Negative (Negative) 11/01/19 Unknown Microbiology: Microbiology 11/01/19 15:36 Peripheral/Venous Blood Culture - Preliminary Culture in Progress 11/01/19 15:45 Peripheral/Venous Blood Culture - Preliminary Culture in Progress - Imaging and Cardiology Imaging and Cardiology: Chest x-ray IMPRESSION: 1. Patchy bilateral airspace disease, greater on the left. This is concerning for pneumonia. Findings are similar to the exam from one year prior. Sullivan/IV: IV Catheter Type [Right Hand] Peripheral IV Assessment and Plan Advance Directives: Yes (Full code) - Patient Problems (1) SIRS (systemic inflammatory response syndrome) Current Visit: Yes Status: Acute Plan to address problem: Patient symptom complex consistent with Sirs Patient has high fever and tachycardia Elevated inflammatory markers (2) Acute respiratory failure with hypoxia Current Visit: Yes Status: Acute Plan to address problem: Patient is hypoxic and ambulation Needs oxygen supplementation (3) Bilateral pneumonia Current Visit: Yes Status: Acute Plan to address problem: Patient initiated on IV antibiotics Patient being treated as community-acquired pneumonia (4) Person under investigation for COVID-19 Current Visit: Yes Status: Acute Plan to address problem: Possible coronavirus infection Coronavirus PCR requested Inflammatory markers are elevated but not very high IV Decadron 6 mg every 24 initiated (5) Asthma Current Visit: Yes Status: Chronic Qualifiers: Asthma persistence: intermittent Plan to address problem: Albuterol MDI as needed IV Decadron 6 mg every 24 (6) DVT prophylaxis Current Visit: Yes Status: Acute Plan to address problem: On Lovenox and GI prophylaxis
[2019-11-01] MEDS: oxyCODONE /ACETAMINOPHEN 5-325MG TAB PO PRN (23:48)
[2019-11-02 02:04] LABS: C-Reactive Protein 4.7 mg/dL (0.00-1.30)
[2019-11-02 05:33] LABS: Basophils # (Auto) 0.1 K/mm3 (0.0-0.1); Basophils % (Auto) 1.2 % (0.0-1.8); Eosinophils % (Auto) 0.1 % (0.0-4.3); Lymphocytes # (Auto) 1.1 K/mm3 (1.2-5.4); Lymphocytes % (Auto) 20.2 % (13.4-35.0); Mean Corpuscular HGB Conc 30 % (30-34); Monocytes # (Auto) 0.2 K/mm3 (0.0-0.8); Monocytes % (Auto) 2.7 % (0.0-7.3); Platelet Count 300 K/mm3 (140-440); Red Blood Count 4.79 M/mm3 (3.65-5.03); Red Cell Distribution Width 18.9 % (13.2-15.2)
[2019-11-02 05:34] LABS: Hematocrit 30.9 % (30.3-42.9); Hemoglobin 9.2 gm/dl (10.1-14.3); Mean Corpuscular Volume 65 fl (79-97)
[2019-11-02 05:47] LABS: Alanine Aminotransferase 12 units/L (7-56); Albumin 3.7 g/dL (3.9-5); BUN/Creatinine Ratio 13; Blood Urea Nitrogen 13 mg/dL (7-17); Calcium 8.6 mg/dL (8.4-10.2); Hemolysis Index 41
[2019-11-02] MEDS: guaiFENesin 100 MG/5 ML ORAL LIQD PO PRN ×4 (05:58→22:58)
[2019-11-02] MEDS ORDERED: AZITHROMYCIN 500 MG in SODIUM CHLORIDE 0.9% 250ML 250 ML IV SCH (10:00)
[2019-11-02] MEDS: FAMOTIDINE 20 MG TAB PO SCH ×2 (10:31→22:59)
[2019-11-02] MEDS: cefTRIAXone/NS 2 GM/100 ML 2 GM/100 ML BAG IV SCH (10:32)
[2019-11-02] MEDS: oxyCODONE /ACETAMINOPHEN 5-325MG TAB PO PRN (14:58)
--- NOTE | 2019-11-02 22:33 | Progress Note ---
Assessment and Plan Day #2 11/02/2019 Still hypoxic on room air and walk test Coughing a lot - Patient Problems (1) SIRS (systemic inflammatory response syndrome) Current Visit: Yes Status: Acute Plan to address problem: Patient symptom complex consistent with Sirs Patient has high fever and tachycardia Elevated inflammatory markers (2) Acute respiratory failure with hypoxia Current Visit: Yes Status: Acute Plan to address problem: Patient is hypoxic and ambulation Needs oxygen supplementation (3) Bilateral pneumonia Current Visit: Yes Status: Acute Plan to address problem: Patient initiated on IV antibiotics Patient being treated as community-acquired pneumonia (4) Person under investigation for COVID-19 Current Visit: Yes Status: Acute Plan to address problem: Possible coronavirus infection Coronavirus PCR requested Inflammatory markers are elevated but not very high IV Decadron 6 mg every 24 initiated (5) Asthma Current Visit: Yes Status: Chronic Qualifiers: Asthma persistence: intermittent Plan to address problem: Albuterol MDI as needed IV Decadron 6 mg every 24 (6) DVT prophylaxis Current Visit: Yes Status: Acute Plan to address problem: On Lovenox and GI prophylaxis Subjective Date of service: 11/02/19 Principal diagnosis: Acute respiratory failure with hypoxia Interval history: 34-year-old female with history of hypertension and asthmatic bronchitis comes in for fever and cough and shortness of breath for 3 days. Patient was apparently seen at [facility] yesterday and was diagnosed with pneumonia and was given Zithromax and sent home. Shortness of breath is worsening especially with ambulation. Also nausea. Also now myalgias and malaise. Patient also has a 5-year-old son with symptoms of fever cough and diarrhea which have improved. She is not sure about coronavirus exposure. Patient has recurrent asthmatic antibiotics and bronchitis. No exacerbating or relieving factors. Still hypoxic on room air Coughing a lot Objective - Constitutional Vitals: Vital Signs - 12hr 11/02/19 11/02/19 11/02/19 10:41 10:51 11:01 Temperature Pulse Rate 90 102 H 89 Pulse Rate [ From Monitor] Respiratory Rate Blood Pressure 107/57 107/57 107/57 Blood Pressure [Right] O2 Sat by Pulse Oximetry 11/02/19 11/02/19 11/02/19 11:11 11:21 11:31 Temperature Pulse Rate 83 84 84 Pulse Rate [ From Monitor] Respiratory 20 16 17 Rate Blood Pressure 126/77 107/57 107/57 Blood Pressure [Right] O2 Sat by Pulse 95 97 96 Oximetry 11/02/19 11/02/19 11/02/19 11:41 11:42 11:51 Temperature 98.7 F Pulse Rate 82 81 Pulse Rate [ From Monitor] Respiratory 26 H 24 Rate Blood Pressure 107/57 126/77 Blood Pressure [Right] O2 Sat by Pulse 96 96 Oximetry 11/02/19 11/02/19 11/02/19 12:00 12:11 12:21 Temperature Pulse Rate 89 78 90 Pulse Rate [ 89 From Monitor] Respiratory 19 18 25 H Rate Blood Pressure 130/78 130/78 130/78 Blood Pressure [Right] O2 Sat by Pulse 95 99 Oximetry 11/02/19 11/02/19 11/02/19 12:31 12:41 12:51 Temperature Pulse Rate 98 H 92 H 87 Pulse Rate [ From Monitor] Respiratory 28 H 19 26 H Rate Blood Pressure 130/78 130/78 130/78 Blood Pressure [Right] O2 Sat by Pulse 96 97 Oximetry 11/02/19 11/02/19 11/02/19 13:01 13:11 13:21 Temperature Pulse Rate 86 81 82 Pulse Rate [ From Monitor] Respiratory 20 14 22 Rate Blood Pressure 130/78 130/78 130/78 Blood Pressure [Right] O2 Sat by Pulse 97 98 97 Oximetry 11/02/19 11/02/19 11/02/19 13:30 13:40 13:50 Temperature Pulse Rate 80 77 89 Pulse Rate [ From Monitor] Respiratory 22 19 29 H Rate Blood Pressure 130/78 130/78 130/78 Blood Pressure [Right] O2 Sat by Pulse 97 97 97 Oximetry 11/02/19 11/02/19 11/02/19 14:00 14:11 14:21 Temperature Pulse Rate 72 80 80 Pulse Rate [ From Monitor] Respiratory 24 24 25 H Rate Blood Pressure 130/78 130/78 130/78 Blood Pressure [Right] O2 Sat by Pulse 98 97 98 Oximetry 11/02/19 11/02/19 11/02/19 14:31 14:41 14:51 Temperature Pulse Rate 73 75 86 Pulse Rate [ From Monitor] Respiratory 18 14 16 Rate Blood Pressure 130/78 130/78 130/78 Blood Pressure [Right] O2 Sat by Pulse 97 98 99 Oximetry 11/02/19 11/02/19 11/02/19 15:01 15:11 15:21 Temperature Pulse Rate 82 79 91 H Pulse Rate [ From Monitor] Respiratory 13 20 17 Rate Blood Pressure 175/144 127/82 127/82 Blood Pressure [Right] O2 Sat by Pulse 97 99 100 Oximetry 11/02/19 11/02/19 11/02/19 15:31 15:41 15:51 Temperature 98.3 F Pulse Rate 77 81 77 Pulse Rate [ From Monitor] Respiratory 18 16 15 Rate Blood Pressure 127/82 127/82 127/82 Blood Pressure [Right] O2 Sat by Pulse 100 99 99 Oximetry 11/02/19 11/02/19 11/02/19 16:00 16:01 16:11 Temperature Pulse Rate 98 H 76 98 H Pulse Rate [ 76 From Monitor] Respiratory 12 12 29 H Rate Blood Pressure 127/82 127/82 Blood Pressure [Right] O2 Sat by Pulse 98 98 Oximetry 11/02/19 11/02/19 11/02/19 16:21 16:31 16:41 Temperature Pulse Rate 104 H 99 H 88 Pulse Rate [ From Monitor] Respiratory 31 H 34 H 15 Rate Blood Pressure 127/82 127/82 127/82 Blood Pressure [Right] O2 Sat by Pulse Oximetry 11/02/19 11/02/19 11/02/19 16:51 17:38 22:30 Temperature 98.5 F 98.2 F Pulse Rate 82 73 Pulse Rate [ From Monitor] Respiratory 19 20 18 Rate Blood Pressure 127/82 119/68 Blood Pressure 130/92 [Right] O2 Sat by Pulse 99 99 94 Oximetry General appearance: Present: no acute distress, well-nourished - EENT Eyes: PERRL, EOM intact ENT: hearing intact, clear oral mucosa Ears: bilateral: normal - Neck Neck: supple, normal ROM - Respiratory Respiratory effort: normal Respiratory: bilateral: CTA, rhonchi (Scattered rhonchi) - Breasts Breasts: normal - Cardiovascular Heart rate: 78 Rhythm: regular Heart Sounds: Present: S1 & S2. Absent: gallop, rub Extremities: pulses intact, No edema, normal color, Full ROM - Gastrointestinal General gastrointestinal: Present: soft, non-tender, non-distended, normal bowel sounds - Genitourinary Female genitourinary: normal - Integumentary Integumentary: clear, warm, dry - Musculoskeletal Musculoskeletal: 1, strength equal bilaterally - Neurologic Neurologic: moves all extremities - Psychiatric Psychiatric: memory intact, appropriate mood/affect, intact judgment & insight - Labs CBC & Chem 7: 11/02/19 05:14 11/02/19 05:14 Labs: Abnormal lab results 11/02/19 11/02/19 11/02/19 Range/Units 01:17 05:14 05:14 Hgb 9.2 L (10.1-14.3) gm/dl MCV 65 L (79-97) fl MCH 19 L (28-32) pg RDW 18.9 H (13.2-15.2) % Lymph # 1.1 L (1.2-5.4) K/mm3 Seg Neutrophils % 75.8 H (40.0-70.0) % Sodium 136 L (137-145) mmol/L Carbon Dioxide 19 L (22-30) mmol/L Glucose 113 H 169 H (65-100) mg/dL Lactate Dehydrogenase 289 H (91-180) units/L C-Reactive Protein 4.70 H (0.00-1.30) mg/dL Albumin 3.7 L (3.9-5) g/dL
[2019-11-02] MEDS: ENOXAPARIN 40 MG/0.4 ML INJ SUB-Q SCH (22:58)
[2019-11-02] MEDS: DEXAMETHASONE 2 MG TAB PO SCH (22:59)
[2019-11-02] MEDS: HYDROmorphone 1 MG/1 ML INJ IV PRN (22:59)
[2019-11-03] MEDS ORDERED: ALBUTEROL 2.5 MG/3 ML NEBU IH ONE ×4 (04:14→15:00)
[2019-11-03] MEDS: guaiFENesin 100 MG/5 ML ORAL LIQD PO PRN (08:54)
[2019-11-03] MEDS: AZITHROMYCIN 250 MG TAB PO SCH (09:49)
[2019-11-03] MEDS: FAMOTIDINE 20 MG TAB PO SCH ×2 (09:49→23:00)
[2019-11-03] MEDS: cefTRIAXone/NS 2 GM/100 ML 2 GM/100 ML BAG IV SCH (09:49)
[2019-11-03] MEDS: HYDROmorphone 1 MG/1 ML INJ IV PRN ×2 (11:00→23:02)
[2019-11-03] MEDS: guaiFENesin/CODEINE 100-10MG ORAL LIQD 5 ML PO PRN ×2 (14:53→23:02)
[2019-11-03] MEDS: ENOXAPARIN 40 MG/0.4 ML INJ SUB-Q SCH (23:00)
[2019-11-03] MEDS: DEXAMETHASONE 2 MG TAB PO SCH (23:00)
[2019-11-04] MEDS: HYDROmorphone 1 MG/1 ML INJ IV PRN ×3 (05:06→23:50)
[2019-11-04] MEDS: guaiFENesin/CODEINE 100-10MG ORAL LIQD 5 ML PO PRN ×3 (05:06→22:54)
[2019-11-04] MEDS: AZITHROMYCIN 250 MG TAB PO SCH (11:02)
[2019-11-04] MEDS: FAMOTIDINE 20 MG TAB PO SCH ×2 (11:02→22:47)
[2019-11-04] MEDS: guaiFENesin 100 MG/5 ML ORAL LIQD PO PRN ×2 (11:03→16:24)
[2019-11-04] MEDS: cefTRIAXone/NS 2 GM/100 ML 2 GM/100 ML BAG IV SCH (11:03)
--- NOTE | 2019-11-04 21:28 | Progress Note ---
Assessment and Plan Day #2 11/02/2019 Still hypoxic on room air and walk test Coughing a lot Day #3 11/03/2019 Patient still hypoxic on room air Oxygen saturations around 94 to 96% on 3 L nasal cannula oxygen On walk test he is hypoxic - Patient Problems (1) SIRS (systemic inflammatory response syndrome) Current Visit: Yes Status: Acute Plan to address problem: Patient symptom complex consistent with Sirs Patient has high fever and tachycardia Elevated inflammatory markers (2) Acute respiratory failure with hypoxia Current Visit: Yes Status: Acute Plan to address problem: Patient is hypoxic and ambulation Needs oxygen supplementation (3) Bilateral pneumonia Current Visit: Yes Status: Acute Plan to address problem: Patient initiated on IV antibiotics Patient being treated as community-acquired pneumonia (4) Person under investigation for COVID-19 Current Visit: Yes Status: Acute Plan to address problem: Coronavirus infection confirmed Coronavirus PCR confirmed Inflammatory markers are elevated but not very high IV Decadron 6 mg every 24 initiated (5) Asthma Current Visit: Yes Status: Chronic Qualifiers: Asthma persistence: intermittent Plan to address problem: Albuterol MDI as needed IV Decadron 6 mg every 24 (6) DVT prophylaxis Current Visit: Yes Status: Acute Plan to address problem: On Lovenox and GI prophylaxis Subjective Date of service: 11/03/19 Principal diagnosis: Acute respiratory failure with hypoxia Interval history: 34-year-old female with history of hypertension and asthmatic bronchitis comes in for fever and cough and shortness of breath for 3 days. Patient was apparently seen at [facility] yesterday and was diagnosed with pneumonia and was given Zithromax and sent home. Shortness of breath is worsening especially with ambulation. Also nausea. Also now myalgias and malaise. Patient also has a 5-year-old son with symptoms of fever cough and diarrhea which have improved. She is not sure about coronavirus exposure. Patient has recurrent asthmatic antibiotics and bronchitis. No exacerbating or relieving factors. Still hypoxic on room air Coughing a lot Coronavirus positive Objective - Constitutional Vitals: Vital Signs - 12hr 11/04/19 11/04/19 11/04/19 11:48 12:00 16:40 Temperature 98.3 F 98.4 F Pulse Rate 69 87 Respiratory 24 20 22 Rate Blood Pressure 121/79 117/77 O2 Sat by Pulse 97 99 Oximetry General appearance: Present: mild distress, well-nourished - EENT Eyes: PERRL, EOM intact ENT: hearing intact, clear oral mucosa Ears: bilateral: normal - Neck Neck: supple, normal ROM - Respiratory Respiratory effort: normal Respiratory: bilateral: CTA - Breasts Breasts: normal - Cardiovascular Heart rate: 88 Rhythm: regular Heart Sounds: Present: S1 & S2. Absent: gallop, rub Extremities: pulses intact, No edema, normal color, Full ROM - Gastrointestinal General gastrointestinal: Present: soft, non-tender, non-distended, normal bowel sounds - Genitourinary Female genitourinary: normal - Integumentary Integumentary: clear, warm, dry - Musculoskeletal Musculoskeletal: 1, strength equal bilaterally - Neurologic Neurologic: moves all extremities - Psychiatric Psychiatric: memory intact, appropriate mood/affect, intact judgment & insight - Labs CBC & Chem 7: 11/02/19 05:14 11/02/19 05:14
--- NOTE | 2019-11-04 21:33 | Progress Note ---
Assessment and Plan Day #2 11/02/2019 Still hypoxic on room air and walk test Coughing a lot Day #3 11/03/2019 Patient still hypoxic on room air Oxygen saturations around 94 to 96% on 3 L nasal cannula oxygen On walk test he is hypoxic Day #4 11/04/2019 Hypoxic on walk test Coughing a lot when oxygen is taken off - Patient Problems (1) SIRS (systemic inflammatory response syndrome) Current Visit: Yes Status: Acute Plan to address problem: Patient symptom complex consistent with Sirs Patient has high fever and tachycardia Elevated inflammatory markers (2) Acute respiratory failure with hypoxia Current Visit: Yes Status: Acute Plan to address problem: Patient is hypoxic on ambulation Needs oxygen supplementation (3) Bilateral pneumonia Current Visit: Yes Status: Acute Plan to address problem: Patient initiated on IV antibiotics Patient being treated as community-acquired pneumonia (4) Person under investigation for COVID-19 Current Visit: Yes Status: Acute Plan to address problem: Coronavirus infection confirmed Coronavirus PCR confirmed Inflammatory markers are elevated but not very high IV Decadron 6 mg every 24 initiated (5) Asthma Current Visit: Yes Status: Chronic Qualifiers: Asthma persistence: intermittent Plan to address problem: Albuterol MDI as needed IV Decadron 6 mg every 24 (6) DVT prophylaxis Current Visit: Yes Status: Acute Plan to address problem: On Lovenox and GI prophylaxis Subjective Date of service: 11/04/19 Principal diagnosis: Acute respiratory failure with hypoxia Interval history: 34-year-old female with history of hypertension and asthmatic bronchitis comes in for fever and cough and shortness of breath for 3 days. Patient was apparently seen at [facility] yesterday and was diagnosed with pneumonia and was given Zithromax and sent home. Shortness of breath is worsening especially with ambulation. Also nausea. Also now myalgias and malaise. Patient also has a 5-year-old son with symptoms of fever cough and diarrhea which have improved. She is not sure about coronavirus exposure. Patient has recurrent asthmatic antibiotics and bronchitis. No exacerbating or relieving factors. Still hypoxic on walk test, on room air she is low 90s Coughing a lot Coronavirus positive Objective - Constitutional Vitals: Vital Signs - 12hr 11/04/19 11/04/19 11/04/19 11:48 12:00 16:40 Temperature 98.3 F 98.4 F Pulse Rate 69 87 Respiratory 24 20 22 Rate Blood Pressure 121/79 117/77 O2 Sat by Pulse 97 99 Oximetry General appearance: Present: no acute distress, well-nourished - EENT Eyes: PERRL, EOM intact ENT: hearing intact, clear oral mucosa Ears: bilateral: normal - Neck Neck: supple, normal ROM - Respiratory Respiratory effort: normal Respiratory: bilateral: CTA, rhonchi (Scattered), wheezing - Breasts Breasts: normal - Cardiovascular Heart rate: 78 Rhythm: regular Heart Sounds: Present: S1 & S2. Absent: gallop, rub Extremities: pulses intact, No edema, normal color, Full ROM - Gastrointestinal General gastrointestinal: Present: soft, non-tender, non-distended, normal bowel sounds - Genitourinary Female genitourinary: normal - Integumentary Integumentary: clear, warm, dry - Musculoskeletal Musculoskeletal: 1, strength equal bilaterally - Neurologic Neurologic: moves all extremities - Psychiatric Psychiatric: memory intact, appropriate mood/affect, intact judgment & insight - Allied health notes Allied health notes reviewed: nursing, case management - Labs CBC & Chem 7: 11/02/19 05:14 11/02/19 05:14
[2019-11-04] MEDS: ENOXAPARIN 40 MG/0.4 ML INJ SUB-Q SCH (22:47)
[2019-11-04] MEDS: DEXAMETHASONE 2 MG TAB PO SCH (22:47)
[2019-11-05] MEDS ORDERED: ALBUTEROL 2.5 MG/3 ML NEBU IH ONE (07:28)
[2019-11-05] MEDS ORDERED: ALBUTEROL 2.5 MG/3 ML NEBU IH PRN (07:30)
[2019-11-05] MEDS: FAMOTIDINE 20 MG TAB PO SCH ×2 (09:46→22:20)
[2019-11-05] MEDS: AZITHROMYCIN 250 MG TAB PO SCH (09:46)
[2019-11-05] MEDS: cefTRIAXone/NS 2 GM/100 ML 2 GM/100 ML BAG IV SCH (09:46)
[2019-11-05] MEDS: HYDROmorphone 1 MG/1 ML INJ IV PRN ×2 (09:54→22:23)
[2019-11-05] MEDS: guaiFENesin/CODEINE 100-10MG ORAL LIQD 5 ML PO PRN ×2 (13:23→22:20)
[2019-11-05] MEDS: DEXAMETHASONE 2 MG TAB PO SCH (22:20)
[2019-11-05] MEDS: ENOXAPARIN 40 MG/0.4 ML INJ SUB-Q SCH (22:20)
[2019-11-06] MEDS: HYDROmorphone 1 MG/1 ML INJ IV PRN (03:06)
[2019-11-06] MEDS: oxyCODONE /ACETAMINOPHEN 5-325MG TAB PO PRN (05:55)
[2019-11-06] MEDS: guaiFENesin/CODEINE 100-10MG ORAL LIQD 5 ML PO PRN ×2 (05:55→13:21)
[2019-11-06] MEDS: cefTRIAXone/NS 2 GM/100 ML 2 GM/100 ML BAG IV SCH (09:39)
[2019-11-06] MEDS: FAMOTIDINE 20 MG TAB PO SCH (09:39)
[2019-11-06] MEDS: AZITHROMYCIN 250 MG TAB PO SCH (09:40)
[2019-11-06 10:55] VITALS: BP 127/71
--- NOTE | 2019-11-06 15:01 | Discharge Summary ---
Providers - Providers Date of Admission: 11/01/19 16:55 Date of discharge: 11/06/19 Attending physician: ELAINA STOVER Primary care physician: [employer]PA[employer] Hospitalization Condition: Stable Hospital course: Subjective Date of service: 11/05/19 Principal diagnosis: Acute respiratory failure with hypox 34-year-old female with history of hypertension and asthmatic bronchitis comes in for fever and cough and shortness of breath for 3 days. Patient was apparently seen at [facility] yesterday and was diagnosed with pneumonia and was given Zithromax and sent home. Shortness of breath is worsening especially with ambulation. Also nausea. Also now myalgias and malaise. Patient also has a 5-year-old son with symptoms of fever cough and diarrhea which have improved. She is not sure about coronavirus exposure. Patient has recurrent asthmatic antibiotics and bronchitis. No exacerbating or relieving factors. O2 normal on walk test, on room air she is low 90s Coughing a lot Coronavirus positive Assessment and Plan Day #2 11/02/2019 Still hypoxic on room air and walk test Coughing a lot Day #3 11/03/2019 Patient still hypoxic on room air Oxygen saturations around 94 to 96% on 3 L nasal cannula oxygen On walk test he is hypoxic Day #4 11/04/2019 Hypoxic on walk test Coughing a lot when oxygen is taken off Anastacio # 5 11/05/19 Doing well Resting oxygen is 98% after walking it came down to 97% no cough - Patient Problems (1) SIRS (systemic inflammatory response syndrome) Current Visit: Yes Status: Acute Plan to address problem: Patient improved No fever (2) Acute respiratory failure with hypoxia Current Visit: Yes Status: Acute Plan to address problem: Hypoxia improved (3) Bilateral pneumonia Current Visit: Yes Status: Acute Plan to address problem: Improved (4) Person under investigation for COVID-19 Current Visit: Yes Status: Acute Plan to address problem: Coronavirus infection confirmed Coronavirus PCR confirmed Improved will discharge on Decadron 6 mg for another 7 days (5) Asthma Current Visit: Yes Status: Chronic Qualifiers: Asthma persistence: intermittent Plan to address problem: Albuterol MDI as needed We will discharge on oral Decadron for 7 days (6) DVT prophylaxis Current Visit: Yes Status: Acute Plan to address problem: No Eliquis Instructions for covered virus given self quarantine for 2 weeks Follow-up with infectious diseases/PCP Disposition: DC-Angie TO HOME OR SELFCARE Time spent for discharge: 35 minutes - Discharge Diagnoses (1) SIRS (systemic inflammatory response syndrome) Status: Acute (2) Acute respiratory failure with hypoxia Status: Acute (3) Bilateral pneumonia Status: Acute (4) Person under investigation for COVID-19 Status: Acute (5) Asthma Status: Chronic Qualifiers: Asthma persistence: intermittent (6) DVT prophylaxis Status: Acute Core Measure Documentation - Palliative Care Palliative Care/ Comfort Measures: Not Applicable - Core Measures Any of the following diagnoses?: none Exam - Constitutional Vitals: Temp Pulse Resp BP Pulse Ox 97.8 F 73 19 127/71 98 11/06/19 10:32 11/06/19 10:32 11/06/19 12:00 11/06/19 10:32 11/06/19 12:00 General appearance: Present: no acute distress, well-nourished - EENT Eyes: Present: PERRL ENT: hearing intact, clear oral mucosa - Neck Neck: Present: supple, normal ROM - Respiratory Respiratory effort: normal Respiratory: bilateral: CTA - Cardiovascular Heart rate: 78 Rhythm: regular Heart Sounds: Present: S1 & S2. Absent: rub, click - Extremities Extremities: no ischemia, pulses intact, pulses symmetrical, No edema Peripheral Pulses: within normal limits - Abdominal General gastrointestinal: Present: soft, non-tender, non-distended, normal bowel sounds Female genitourinary: Present: normal - Integumentary Integumentary: Present: clear, warm, dry - Musculoskeletal Musculoskeletal: gait normal, strength equal bilaterally - Psychiatric Psychiatric: appropriate mood/affect, intact judgment & insight - Neurologic Neurologic: CNII-XII intact, moves all extremities - Allied Health Allied health notes reviewed: nursing, case management Plan Activity: no restrictions Diet: regular Follow up with: TROY BAH MD [Primary Care Provider] - 3-5 Days JESUS SIEGEL MD [Staff Physician] - 7 Days
== END 2019-11-06 16:28 | disposition home or self-care (01) | DRG 177 ==
LOC: ED 13:31 → IMCU 16:55 → 3A 11-02 17:13
PROVIDERS: ADMIT Internal Medicine; ATTEND Internal Medicine
DX: U07.1 COVID-19 (principal); J96.01 Acute respiratory failure with hypoxia; J12.89 Other viral pneumonia; R65.10 Systemic inflammatory response syndrome (SIRS) of non-infectious origin without acute organ dysfunction; I10 Essential (primary) hypertension; J45.20 Mild intermittent asthma, uncomplicated
CPT/HCPCS: 36415; 71046; 80053; 81001; 81025; 82140; 82728; 82947; 83036; 83615; 84145; 85025; 85379; 86140; 87040; 87086; 94640; G0378; J0456; J0696; J1100; J1170; J1650; J7030; J7050; J8540; U0003-CS

== ENCOUNTER 2020-02-24 20:28 | Emergency (ER) | payer OTHER ==
[2020-02-24] MEDS ORDERED: oxyCODONE /ACETAMINOPHEN 5-325MG TAB PO ONE (20:52)
--- NOTE | 2020-02-24 20:53 | Event Note ---
ED Screening Note Date of service: 02/24/20 Time: 20:53 ED Screening Note: Possible R shoulder dislocation States prior history of right shoulder dislocation This initial assessment/diagnostic orders/clinical plan/treatment(s) is/are subject to change based on patients health status, clinical progression and re- assessment by fellow clinical providers in the ED. Further treatment and workup at subsequent clinical providers discretion. Patient/guardian urged not to elope from the ED as their condition may be serious if not clinically assessed and managed. Initial orders include: X-ray Percocet
[2020-02-24] MEDS ORDERED: ONDANSETRON 4 MG/2 ML INJ IV ONE (21:18)
[2020-02-24] MEDS ORDERED: SODIUM CHLORIDE 0.9% 1000 ML 1,000 ML IV ONE (21:18)
[2020-02-24] MEDS ORDERED: propofoL 200 MG/20 ML VIAL IV ONE (21:18)
[2020-02-24] MEDS ORDERED: ETOMIDATE 20 MG/10 ML INJ IV ONE (21:18)
--- NOTE | 2020-02-24 21:23 | Emergency Department Report ---
Upper Extremity - HPI Chief Complaint: Shoulder Injury Stated Complaint: RT SHOULDER DISLOCATION Time Seen by Provider: 02/24/20 21:02 Upper Extremity: Right Shoulder Occurred When: Today Mechanism: Fall Severity: severe Symptoms: Yes Pain with Movement, Yes Deformity, Yes Limited Range of Movement, No Numbness, No Weakness, No Swelling, No Bruising/Ecchymosis, No Laceration or Abrasion Other History: Patient is a 34-year-old female that presents emergency room with complaints of right shoulder pain. Patient states she was getting out of her car she slipped and grabbed the side of a car and felt her right shoulder pop. Patient states she has had dislocations in the past. Patient states this feels like a dislocation. Patient states that EMS placed her in a splint. Patient patient states that the pain is a 10 out of 10. Patient states that the pain is better with rest and worse with movement and palpation. Patient states the last time she ate was 2 hours ago but she threw up all up after this incident. Patient denies nausea vomiting at this time. Patient denies chest pain or shortness of breath. Patient denies any further complaints or injuries. Patient denies recent travel. Patient denies recent international travel. Patient denies exposure to the novel coronavirus. Patient denies sick contacts. Patient denies fever and chills. Patient denies cough. Patient denies diarrhea. Patient denies coming in contact with anybody with symptoms of the novel coronavirus. ED Review of Systems ROS: Stated complaint: RT SHOULDER DISLOCATION Other details as noted in HPI Constitutional: denies: chills, fever Eyes: denies: eye pain, eye discharge, vision change ENT: denies: ear pain, throat pain Respiratory: denies: cough, shortness of breath, wheezing Cardiovascular: denies: chest pain, palpitations Endocrine: no symptoms reported Gastrointestinal: denies: abdominal pain, nausea, diarrhea Genitourinary: denies: urgency, dysuria, discharge Musculoskeletal: denies: back pain, joint swelling, arthralgia Skin: denies: rash, lesions Neurological: denies: headache, weakness, paresthesias Psychiatric: denies: anxiety, depression Hematological/Lymphatic: denies: easy bleeding, easy bruising ED Past Medical Hx - Past Medical History Previous Medical History?: Yes Hx Hypertension: Yes Hx Congestive Heart Failure: No Hx Diabetes: No Hx Renal Disease: Yes Hx Asthma: Yes Hx COPD: No Additional medical history: Anemia, pneumonia. Morbid Obesity - Surgical History Past Surgical History?: Yes Additional Surgical History: right shoulder surgery. neck surgery - Family History Family history: no significant - Social History Smoking Status: Never Smoker Substance Use Type: None - Medications Home Medications: Home Medications Medication Instructions Recorded Confirmed Last Taken Type Albuterol Mdi (or & Nicu Only) 2 puff IH QID PRN #8.5 gram 11/06/19 Unknown Rx [ProAir HFA Inhaler] Dexamethasone [Decadron] 6 mg PO QDAY #6 tablet 11/06/19 Unknown Rx guaiFENesin/CODEINE [Robitussin AC] 5 ml PO QID PRN #150 ml 11/06/19 Unknown Rx oxyCODONE /ACETAMINOPHEN [Percocet 1 tab PO Q6H PRN #20 tablet 11/06/19 Unknown Rx 5/325 mg] Upper Extremity Exam - Exam General: Vital signs noted. No distress. Alert and acting appropriately. Head and Torso: No HEENT Abnormality, No Neck Tenderness, No Chest/Lungs Abnormality, No Abdominal Tenderness, No Back Tenderness Shoulder Exam: Yes Shoulder Tenderness, Yes Normal Range of Motion in Shoulder, No Clavicle Tenderness, No Shoulder Deformity, No AC Joint Tenderness Arm Exam: No Arm/Humerus Tenderness, No Arm Deformity Elbow: No Elbow Tenderness, No Normal Range of Motion in Elbow, No Elbow Deformity Forearm: No Forearm Tenderness, No Forearm Deformity, No Pain with Pronation, No Pain with Supination Wrist: Yes Normal ROM in Wrist, No Wrist Tenderness, No Wrist Deformity, No Snuffbox Tenderness, No Pain with Axial Thumb Compression Hand: Yes Normal ROM in Digit(s), No Hand Tenderness, No Hand Deformity, No Digit Tenderness, No Digit(s) Deformity, No Tendon Dysfunction CMS Exam: No Broken Skin, No Normal Distal Pulses, No Normal Capillary Refill, No Normal Distal Sensation ED Course Vital Signs 02/24/20 20:46 Temperature 98.4 F Pulse Rate 81 Respiratory 18 Rate Blood Pressure 153/124 O2 Sat by Pulse 98 Oximetry - Reevaluation(s) Reevaluation #1: Initial evaluation done. Patient has an obvious deformity to her right shoulder. Patient's x-ray shows an dislocation. 02/24/20 21:02 Reevaluation #2: Consent received. Patient agrees to have moderate sedation and a shoulder reduction. 02/24/20 22:30 Reevaluation #3: Patient shoulder is reduced. See procedure note. Patient tolerated well. No complications noted. 02/24/20 23:04 Reevaluation #4: Patient is awake alert and oriented. Patient is amatory in the ER. Patient an swering questions appropriately. Patient's blood pressure is high. Patient states she has blood pressure medication as her house but is noncompliant with it. I instructed patient to take blood pressure medication as directed by her primary care. I discussed all results and clinical findings with patient. I discussed plan of care with patient. Patient agrees with plan of care. Patient is stable for discharge. Patient will be discharged home. Patient given discharge instructions. Patient voiced understanding of discharge instructions. 02/24/20 23:54 - Moderate Sedation Indications: fracture/dislocation redu ASA Class: I Mallampati Airway Score: 2 Preparation: diagnostic cardiac sonographer applied, pulse oximeter, capnometry used, supplemental O2 applied, suction/airway equipment at bedside, IV secured Ketamine Dose: 15 IV Propofol Dose (mgs): 150 Complications: none Interventions: oxygen applied Patient Tolerated Procedure: well, no complications - Orthopedic Joint Reduction Joint #1 Consent Obtained: verbal consent, written consent Time Out Performed: Yes Side: right Joint Reduction Location: shoulder Analgesia: moderate sedation Shoulder Technique Used (if applicable): traction/counter-traction Technique Used: traction/counter-traction Post-Reduction Neuro Exam: intact, no change Post-Reduction Vascular Exam: intact, no change Post Reduction X-Ray Obtained: Yes Post Reduction X-Ray Results: reduced Splint Applied: Yes Patient Tolerated Procedure: well, no complications ED Medical Decision Making - Radiology Data Radiology results: report reviewed, image reviewed interpreted by me: First shoulder x-ray: No fracture, anterior dislocation noted, no osseous abnormalities, no foreign body, soft tissue intact. Second shoulder x-ray: Shows adequate reduction. No fracture, no foreign body and soft tissue normal. RIGHT SHOULDER 2 VIEWS INDICATION / CLINICAL INFORMATION: Right shoulder pain. COMPARISON: 07/23/18. FINDINGS: BONES / JOINT(S): There is inferior and medial displacement of the right humeral head in relationship to the glenoid. No associated fracture is seen. No significant arthritis. SOFT TISSUES: No significant abnormality. ADDITIONAL FINDINGS: None. IMPRESSION: Anterior dislocation of the right shoulder. RIGHT SHOULDER 1 VIEW 10:58 PM INDICATION / CLINICAL INFORMATION: Post reduction COMPARISON: Earlier today at 9:14 PM. FINDINGS: BONES / JOINT(S): The previously described anterior dislocation has been reduced. No fracture. Mild subchondral cystic changes in the glenoid. SOFT TISSUES: Small metallic densities overlying the soft tissues of the proximal right arm are again noted. ADDITIONAL FINDINGS: The right lung is clear. IMPRESSION: Interval reduction of the previously described anterior dislocation of the right shoulder. - Medical Decision Making Patient is a 34-year-old female that presents emergency room with complaints of a right shoulder pain. Patient has history of shoulder dislocation. Patient had a initial x-ray done which showed an anterior dislocation. Patient had a reduction done with moderate sedation. See procedure notes. Patient tolerated procedures well. No complications noted. Patient had a splint applied post procedure. Patient had a post reduction x-ray done which showed adequate reduction. Patient monitored for several hours until back to baseline. - Differential Diagnosis Shoulder pain, shoulder dislocation Critical Care Time: Yes Critical care time in (mins) excluding proc time.: 45 Critical care attestation.: If time is entered above; I have spent that time in minutes in the direct care of this critically ill patient, excluding procedure time. Critical Care Time: 45 minutes ED Disposition Clinical Impression: Noncompliance with medication regimen Shoulder pain Qualifiers: Chronicity: acute Laterality: right Qualified Code(s): M25.511 - Pain in right shoulder Shoulder dislocation Qualifiers: Encounter type: initial encounter Laterality: right Qualified Code(s): S43.004A - Unspecified dislocation of right shoulder joint, initial encounter Hypertension Qualifiers: Hypertension type: essential hypertension Qualified Code(s): I10 - Essential (primary) hypertension Disposition: DC- TO HOME OR SELFCARE Is pt being admited?: No Does the pt Need Aspirin: No Condition: Stable Instructions: Shoulder Pain, Shoulder Dislocation, Hypertension (ED), Hypertension, Adult, [id number] Additional Instructions: Patient to follow-up with primary care in 2 to 3 days. Patient to follow-up with orthopedist in 2 to 3 days. Patient to rest. Patient to increase water. Patient to avoid strenuous exercise or heavy lifting until cleared by orthopedist. Patient to keep sling immobilizer on until cleared by orthopedist. Patient to take Tylenol or ibuprofen as needed for pain. Patient to return to the ER if condition worsens, changes or new symptoms arise. Patient seen a low-salt diet. Patient had a heart healthy diet. Patient to karely e blood pressure medications as directed. Patient to monitor blood pressure at home. Patient to keep a blood pressure log. Patient to take blood pressure log to all follow-up appointments. Referrals: NOEL GAMBOA MD [Primary Care Provider] - 2-3 Days ABA MONGE MD [Staff Physician] - 2-3 Days Time of Disposition: 23:35
--- NOTE | 2020-02-24 22:14 | XRay Report ---
RIGHT SHOULDER 2 VIEWS INDICATION / CLINICAL INFORMATION: Right shoulder pain. COMPARISON: 07/23/18. FINDINGS: BONES / JOINT(S): There is inferior and medial displacement of the right humeral head in relationship to the glenoid. No associated fracture is seen. No significant arthritis. SOFT TISSUES: No significant abnormality. ADDITIONAL FINDINGS: None. IMPRESSION: Anterior dislocation of the right shoulder. Signer Name: Dax Carl MD Signed: 02/24/2020 10:10 PM Workstation Name: [id number]
--- NOTE | 2020-02-24 23:20 | XRay Report ---
RIGHT SHOULDER 1 VIEW 10:58 PM INDICATION / CLINICAL INFORMATION: Post reduction COMPARISON: Earlier today at 9:14 PM. FINDINGS: BONES / JOINT(S): The previously described anterior dislocation has been reduced. No fracture. Mild s ubchondral cystic changes in the glenoid. SOFT TISSUES: Small metallic densities overlying the soft tissues of the proximal right arm are again noted. ADDITIONAL FINDINGS: The right lung is clear. IMPRESSION: Interval reduction of the previously described anterior dislocation of the right shoulder . Signer Name: Dax Carl MD Signed: 02/24/2020 11:16 PM Workstation Name: [id number]
[2020-02-25] MEDS ORDERED: HYDROmorphone 1 MG/1 ML INJ IV ONE (00:58)
[2020-02-25 23:49] VITALS: BP 163/100
== END 2020-02-25 01:22 | disposition home or self-care (01) ==
LOC: ED 20:28
DX: S43.004A Unspecified dislocation of right shoulder joint, initial encounter (principal); M25.511 Pain in right shoulder; I10 Essential (primary) hypertension; J45.909 Unspecified asthma, uncomplicated; D64.9 Anemia, unspecified; E66.01 Morbid (severe) obesity due to excess calories; Z68.43 Body mass index [BMI] 50.0-59.9, adult; Z98.890 Other specified postprocedural states; Z88.6 Allergy status to analgesic agent; Z79.899 Other long term (current) drug therapy; Z91.14 Patient's other noncompliance with medication regimen; V49.50XA Passenger injured in collision with unspecified motor vehicles in traffic accident, initial encounter; Y93.89 Activity, other specified; Y92.410 Unspecified street and highway as the place of occurrence of the external cause; Y99.8 Other external cause status
CPT/HCPCS: 23650; 73020; 73030; 94760; 96365; 96366; 96375; 99284; J1170; J2405; J2704; J7030

== ENCOUNTER 2021-11-16 17:47 | Emergency (ER) | payer OTHER ==
[2021-11-16] MEDS ORDERED: CYCLOBENZAPRINE 10 MG TAB PO ONE (22:18)
--- NOTE | 2021-11-16 22:23 | Emergency Department Report ---
ED Back Pain/Injury HPI - General Chief Complaint: Back Pain/Injury Stated Complaint: BACK PAIN Time Seen by Provider: 11/16/21 21:27 Source: patient Limitations: No Limitations - History of Present Illness MD Complaint: back pain (History of same. No blunt trauma and she knows of no exacerbating activity.) Onset/Timin -: Gradual, week(s) (To) Similar Symptoms Previously: Yes Radiation: other (Bilateral shoulders) Severity: moderate Severity scale (0 -10): 4 Quality: sharp Consistency: intermittent Improves With: none Worsens With: movement Context: unknown (Patient has history of same pain. She is out of muscle relaxers.) Associated Symptoms: denies: weakness, chest pain, numbness, incontinence, nausea/vomiting, shortness of breath - Related Data Previous Rx's Medication Instructions Recorded Last Taken Type Dexamethasone [Decadron] 6 mg PO QDAY #6 tablet 11/06/19 Unknown Rx Albuterol Mdi (or & Nicu Only) 2 puff IH QID PRN #8.5 gram 11/16/21 Unknown Rx [ProAir HFA Inhaler] Cyclobenzaprine HCl 10 mg PO HS PRN #20 tab 11/16/21 Unknown Rx Cyclobenzaprine [Flexeril 10 MG 5 mg PO ONCE tablet 11/16/21 Unknown Rx TAB] Allergies Allergy/AdvReac Type Severity Reaction Status Date / Time ibuprofen [From Motrin] Allergy Hives Verified 11/01/19 14:00 ED Review of Systems ROS: Stated complaint: BACK PAIN Other details as noted in HPI Comment: All other systems reviewed and negative Constitutional: no symptoms reported. denies: chills, fever Eyes: denies: vision change ENT: denies: throat pain Respiratory: denies: cough, shortness of breath Cardiovascular: denies: chest pain, palpitations, dyspnea on exertion, edema Gastrointestinal: denies: abdominal pain, nausea, vomiting Genitourinary: denies: urgency, dysuria, frequency, hematuria Musculoskeletal: as per HPI Skin: denies: rash Neurological: denies: headache, weakness, numbness, abnormal gait Psychiatric: denies: anxiety, depression Hematological/Lymphatic: denies: easy bleeding, easy bruising ED Past Medical Hx - Past Medical History Hx Hypertension: Yes Hx Congestive Heart Failure: No Hx Diabetes: No Hx Renal Disease: Yes Hx Asthma: Yes Hx COPD: No Additional medical history: Anemia, pneumonia. Morbid Obesity - Surgical History Additional Surgical History: right shoulder surgery. neck surgery - Family History Family history: no significant - Social History Smoking Status: Never Smoker Substance Use Type: None - Medications Home Medications: Home Medications Medication Instructions Recorded Confirmed Last Taken Type Dexamethasone [Decadron] 6 mg PO QDAY #6 tablet 11/06/19 Unknown Rx Albuterol Mdi (or & Nicu Only) 2 puff IH QID PRN #8.5 gram 11/16/21 Unknown Rx [ProAir HFA Inhaler] Cyclobenzaprine HCl 10 mg PO HS PRN #20 tab 11/16/21 Unknown Rx Cyclobenzaprine [Flexeril 10 MG 5 mg PO ONCE tablet 11/16/21 Unknown Rx TAB] ED Physical Exam - General Limitations: No Limitations General appearance: alert, in no apparent distress - Head Head exam: Present: atraumatic, normocephalic - Eye Eye exam: Present: normal appearance, scleral icterus, conjunctival injection - ENT ENT exam: Present: mucous membranes moist - Neck Neck exam: Present: normal inspection. Absent: tenderness, meningismus, full ROM - Respiratory Respiratory exam: Present: normal lung sounds bilaterally. Absent: respiratory distress, wheezes, rales, rhonchi - Cardiovascular Cardiovascular Exam: Present: regular rate, normal rhythm, normal heart sounds - GI/Abdominal GI/Abdominal exam: Present: soft. Absent: distended, tenderness, guarding, rebound - Extremities Exam Extremities exam: Present: normal inspection, full ROM, normal capillary refill. Absent: tenderness - Back Exam Back exam: Present: normal inspection, full ROM, tenderness (Bilateral paraspin ous muscles upper thoracic and lower cervical) - Neurological Exam Neurological exam: Present: alert, oriented X3, CN II-XII intact, normal gait, motor sensory deficit, reflexes normal - Psychiatric Psychiatric exam: Present: normal affect, normal mood - Skin Skin exam: Present: warm, dry, intact, normal color ED Course Vital Signs 11/16/21 11/16/21 18:42 22:55 Temperature 98.4 F Pulse Rate 79 74 Respiratory 18 14 Rate Blood Pressure 149/88 152/91 [Left] O2 Sat by Pulse 100 100 Oximetry - Reevaluation(s) Reevaluation #1: 11/16/21 22:24 Patient has allergy to ibuprofen (hives). She is uncertain whether she can take any other anti-inflammatories. She is a somewhat poor historian. Reevaluation #2: 11/17/21 06:00 Discharge vitals reviewed and are normal. ED Medical Decision Making - Medical Decision Making Flexeril given here. Will have her follow-up with primary care doctor if she is not improving in 3 to 5 days. - Differential Diagnosis Cervical sprain thoracic sprain acute exacerbation of chronic pain Critical care attestation.: If time is entered above; I have spent that time in minutes in the direct care of this critically ill patient, excluding procedure time. ED Disposition Clinical Impression: Thoracic back sprain, Neck pain Disposition: HOME / SELF CARE / HOMELESS Is pt being admited?: No Condition: Stable Instructions: How to Use Cold Therapy, [id number], Thoracic Strain, [id number] Additional Instructions: Use ice in place of anti-inflammatories 15 minutes/h alternating with heat. Flexeril at night. Follow-up with primary care or as per referral 3 to 5 days if not improving. Return if worse. Prescriptions: Cyclobenzaprine HCl 10 mg PO HS PRN #20 tab PRN Reason: Spasms Albuterol Mdi (or & Nicu Only) [ProAir HFA Inhaler] 2 puff IH QID PRN #8.5 gram PRN Reason: Shortness Of Breath Referrals: DEANDRA SAHU MD [Staff Physician] - 3-5 Days Forms: Work/School Release Form(ED) Time of Disposition: 22:32
[2021-11-16 23:09] VITALS: BP 152/91
== END 2021-11-16 22:56 | disposition home or self-care (01) ==
LOC: ED 17:47
DX: S23.3XXA Sprain of ligaments of thoracic spine, initial encounter (principal); M54.2 Cervicalgia; Z88.6 Allergy status to analgesic agent; X58.XXXA Exposure to other specified factors, initial encounter; Y93.89 Activity, other specified; Y92.89 Other specified places as the place of occurrence of the external cause; Y99.8 Other external cause status; I10 Essential (primary) hypertension; J45.909 Unspecified asthma, uncomplicated
CPT/HCPCS: 99282